=== PATIENT | female | born 1945 | race Caucasian/White ===

== ENCOUNTER 2022-06-02 13:45 | Emergency (ER) | payer MEDICARE, BC, SELFPAY ==
--- NOTE | ~2022-06-02 | CT_ITS ---
EXAMINATION: CT HEAD WITHOUT CONTRAST CLINICAL INFORMATION: Dizziness COMPARISON: None available. TECHNIQUE: Contiguous axial imaging was performed from the skull base to vertex without intravenous administration of contrast. This CT examination was performed using dose optimization techniques as appropriate, variously including the following: *Automated exposure control *Adjustment of mA and/or kV according to patient size (this includes techniques or standardized protocols for targeted exams where dose is matched to indication/reason for exam; i.e. extremities or head) *Use of iterative reconstruction technique DLP: 534 mGy-cm FINDINGS: There is mild prominence to the sulci. There is no intra or extra-axial fluid collection or hemorrhage, mass or mass effect. Calvarium intact. CT/CT head/brain wo IV con IMPRESSION: No acute intracranial pathology.
[2022-06-02 14:23] VITALS: BP 136/79; PULSE 75; RESP 18; TEMP 36.1; O2SAT 97; BMI 24.4
--- NOTE | 2022-06-02 14:28 | ED_ITS ---
HPI - General Adult General Chief complaint: Dizziness <MABEL Juares - Last Filed: 06/02/22 14:32> Stated complaint: vomiting, vertigo <MABEL Juares - Last Filed: 06/02/22 14:32> Time Seen by Provider: 06/02/22 15:54 <MABEL Juares - Last Filed: 06/02/22 14:32> Source: patient and family (Daughter, Tree) <Froy Head MD - Last Filed: 06/02/22 17:10> Mode of arrival: ambulatory <Froy Head MD - Last Filed: 06/02/22 17:10> Limitations: no limitations <Froy Head MD - Last Filed: 06/02/22 17:10> History of Present Illness HPI narrative: 76-year-old female who presents emergency department for evaluation of hughes dden onset vertigo. She states yesterday she developed lower back pain which is resolved today. She was in bed and she turned her head and she states the room started spinning violently. She stood up and became nauseated and vomited 2 times. Since onset every time she goes from lying to standing position she develops vertigo/room spinning sensations. The the denied fever chills, rhinorrhea, sore throat, cough, chest pain, shortness of breath, dyspnea on exertion.. She denied frequency, urgency or dysuria. <Froy Head MD - Last Filed: 06/02/22 17:10> Related Data Home medications: Previous Rx's Medication Instructions Recorded meclizine 12.5 mg tablet 12.5 mg PO TID PRN dizziness #20 06/02/22 tabs <MABEL Juares - Last Filed: 06/02/22 14:32> Allergies/adverse reactions: Allergies Allergy/AdvReac Type Severity Reaction Status Date / Time No Known Allergies Allergy Verified 06/02/22 14:28 <MABEL Juares - Last Filed: 06/02/22 14:32> Review of Systems Review of Systems: Yes all other systems are reviewed and are negative <Froy Head MD - Last Filed: 06/02/22 17:10> PMFSH Past Medical History [facility] Narrative: Past will history: Diabetes mellitus, atrial fibrillation, breast cancer x3 with mastectomy 1 year prior. She states she is still receiving treatment every 6 months. Social history drug use. <Froy Head MD - Last Filed: 06/02/22 17:10> Social History Social History: Social History Smoked in Last 30 Days: No Use of substances other than those prescribed or required for medical reasons: No Advance Directives: No Advance Directives Information Provided: No <MABEL Juares - Last Filed: 06/02/22 14:32> Physical Exam ED Vital Signs: Vital Signs - 24 hr 06/02/22 14:23 Temperature 97.0 F Pulse Rate 75 Respiratory Rate 18 Blood Pressure 136/79 Pulse Oximetry 97 Oxygen Delivery Method Room Air BMI result Body Mass Index 24.4 <MABEL Juares - Last Filed: 06/02/22 14:32> Vital Signs - 24 hr 06/02/22 14:23 Temperature 97.0 F Pulse Rate 75 Respiratory Rate 18 Blood Pressure 136/79 Pulse Oximetry 97 Oxygen Delivery Method Room Air BMI result Body Mass Index 24.4 <Froy Head MD - Last Filed: 06/02/22 17:10> Const General: cooperative and no acute distress <Froy Head MD - Last Filed: 06/02/22 17:10> Orientation/consciousness: oriented to person and oriented to place <Froy Head MD - Last Filed: 06/02/22 17:10> Limitations: no limitations <Froy Head MD - Last Filed: 06/02/22 17:10> HENCO Head: Yes normal to inspection, Yes normocephalic and Yes atraumatic <Froy Head MD - Last Filed: 06/02/22 17:10> Ears: external ears normal <Froy Head MD - Last Filed: 06/02/22 17:10> General nose exam: Normal external nose present <Froy Head MD - Last Filed: 06/02/22 17:10> Face and sinus: Yes normal facial exam <Froy Head MD - Last Filed: 06/02/22 17:10> Mouth: Normal oral and palatal mucosa present <MD Kvng Soler Last Filed: 06/02/22 17:10> Throat: Yes posterior oropharynx normal <Froy Head MD - Last Filed: 06/02/22 17:10> Eyes General: appearance normal, both eyes and all related structures <Froy Head MD - Last Filed: 06/02/22 17:10> Pupils: Equal, round and reactive pupils present <MD Kvng Soler Last Filed: 06/02/22 17:10> Neck Neck: Yes normal visual inspection, Yes no lymphadenopathy, Yes trachea midline and Yes supple <Froy Head MD - Last Filed: 06/02/22 17:10> Chest Chest palpation & inspection: normal inspection of the chest and normal palpation of entire chest wall <MD Kvng Soler Last Filed: 06/02/22 17:10> Resp Effort & Inspection: normal respiratory effort and able to speak in complete sentences <MD Kvng Soler Last Filed: 06/02/22 17:10> Auscultation: clear to auscultation bilaterally <MD Kvng Soler Last Filed: 06/02/22 17:10> Cardio Rate: regular rate <MD Kvng Soler Last Filed: 06/02/22 17:10> Rhythm: regular rhythm <MD Kvng Soler Last Filed: 06/02/22 17:10> Heart sounds: S1 normal heart sound present, S2 normal heart sound present and no murmurs <MD Kvng Soler Last Filed: 06/02/22 17:10> GI Inspection: Yes normal to inspection <MD Kvng Soler Last Filed: 06/02/22 17:10> Palpation (GI): Soft to palpation, nontender and no guarding <MD Kvng Soler Last Filed: 06/02/22 17:10> Auscultation: normal bowel sounds <MD Kvng Soler Last Filed: 06/02/22 17:10> General: Yes no CVA tenderness <Froy Head MD - Last Filed: 06/02/22 17:10> Back/Spine/Pelvis Back: no CVA tenderness <rFoy Head MD - Last Filed: 06/02/22 17:10> Skin General skin exam: no rashes or lesions noted <Froy Head MD - Last Filed: 06/02/22 17:10> Neuro General: oriented to person and oriented to place <Froy Head MD - Last Filed: 06/02/22 17:10> Cranial nerves: Yes CN's II-XII intact bilaterally and Yes Equal, round and reactive pupils present <Froy Head MD - Last Filed: 06/02/22 17:10> Cognition (Neuro): normal cognition <Froy Head MD - Last Filed: 06/02/22 17:10> Motor exam (neuro): 5/5 motor strength present throughout <Froy Head MD - Last Filed: 06/02/22 17:10> Extrem General: Yes normal to inspection <Froy Head MD - Last Filed: 06/02/22 17:10> Psych Appearance: grossly normal <Froy Head MD - Last Filed: 06/02/22 17:10> Speech and movement: Normal speech and movement present <Froy Head MD - Last Filed: 06/02/22 17:10> Affect: normal affect <Froy Head MD - Last Filed: 06/02/22 17:10> Attitude: cooperative <Froy Head MD - Last Filed: 06/02/22 17:10> Course Course Course Narrative: This is an RME: Additional HPI, ROS, PE not included below will be deferred to primary provider. 76 year old female with PMH of vertigo presents wi th severe dizziness and bilateral flank pain that that began today. Patient reports symptoms feel similar to her typical vertigo episodes. No urinary sx, no dysuria, hematuria, pruritus. PE: - finger to nose, -heel to dai, NIHSS 0, Plan: imaging <MABEL Juares - Last Filed: 06/02/22 14:32> Medications Administered Discontinued Medications Generic Name Dose Route Start Last Admin Trade Name Freq PRN Reason Stop Dose Admin Sodium Chloride 1,000 mls @ 999 mls/hr 06/02/22 14:45 06/02/22 16:46 Ns IV 06/02/22 15:45 999 mls/hr .Q1H1M MISTI Administration Meclizine HCl 25 mg 06/02/22 14:32 06/02/22 16:43 Meclizine Hcl 25 Mg Tablet PO 06/02/22 14:33 25 mg ONCE ONE Administration <MABEL Juares - Last Filed: 06/02/22 14:32> Medications Administered Discontinued Medications Generic Name Dose Route Start Last Admin Trade Name Freq PRN Reason Stop Dose Admin Sodium Chloride 1,000 mls @ 999 mls/hr 06/02/22 14:45 06/02/22 16:46 Ns IV 06/02/22 15:45 999 mls/hr .Q1H1M MISTI Administration Meclizine HCl 25 mg 06/02/22 14:32 06/02/22 16:43 Meclizine Hcl 25 Mg Tablet PO 06/02/22 14:33 25 mg ONCE ONE Administration <rFoy Head MD - Last Filed: 06/02/22 17:10> Medical Decision Making Medical Decision Making MDM Narrative: 76-year-old female who presents emergency department for evaluation of sudden onset of vertigo associated with nausea and vomiting. The vertigo is triggered by position change (lying to standing). Vital signs were normal. Ph ysical examination was unremarkable. Provider at triage ordered the following: CBC, CMP, magnesium, urinalysis, CT scan of the head. I added 12 EKG. Patient's vertigo be treated with meclizine 25 mg orally. My interpretation laboratory evaluation as follows: CBC normal. CMP was normal. CT of the brain was unremarkable. Twelve EKG shows that she was in normal sinus rhythm. Patient's presentation is consistent with acute onset of benign positional vertigo and I did discuss this with the patient the patient's daughter. I did contact physical therapy and they can do Rowan fevers on the patient tomorrow she gets a prescription for vertigo treat from her PCP (this cannot complement in-patient provider for outpatient treatment). I did discuss this with the patient. Patient was prescribed meclizine 12.5 mg 3 times a day as needed for dizziness. She was given a work note. She was discharged home. <Froy Head MD - Last Filed: 06/02/22 17:10> Differential Diagnosis Differential diagnosis includes was not limited to benign positional vertigo, cerebellar stroke, electrolyte abnormalities, arrhythmias, atrial fibrillation, anemia <Froy Head MD - Last Filed: 06/02/22 17:10> Admission/Observation Consideration of admission/observation: Escalation of care including admission/observation considered <Froy Head MD - Last Filed: 06/02/22 17:10> Lab Data [facility] Lab Attestation statement: I reviewed the patient's lab results. <Froy Head MD - Last Filed: 06/02/22 17:10> See MDM <Froy Head MD - Last Filed: 06/02/22 17:10> Result Diagrams: 06/02/22 15:43 06/02/22 15:43 <MABEL Juares - Last Filed: 06/02/22 14:32> Labs: Lab Results 06/02/22 06/02/22 06/02/22 Range/Units 15:43 15:43 16:48 WBC 7.2 (4.8-10.8) X10*3/uL RBC 5.04 (4.20-5.50) X10*6/uL Hgb 15.1 (12.0-16.0) g/dl Hct 46.1 (37.0-47.0) % MCV 91.5 (80.0-98.0) fL MCH 30.0 (27.0-33.0) pg MCHC 32.8 (31.0-35.0) g/dl RDW 13.9 (11.0-16.0) % Plt Count 175 (160-400) X10*3/uL MPV 11.4 (9.4-12.3) fL Immature Gran % (Auto) 0.1 (0.0-0.4) % Neut % (Auto) 71.4 (45-73) % Lymph % (Auto) 17.7 L (20-40) % [place] % (Auto) 8.8 (2-11) % Eos % (Auto) 1.4 (0-4) % Baso % (Auto) 0.6 (0-2) % Lymph # (Auto) 1.3 (1.2-4.9) X10*3/uL [place] # (Auto) 0.6 (0.1-1.2) X10*3/uL Eos # (Auto) 0.1 (0.0-0.4) X10*3/uL Baso # (Auto) 0.0 (0.0-0.2) X10*3/uL Abs Immat Gran (auto) 0.01 (0.00-0.03) X10*3/uL Absolute Neuts (auto) 5.2 (2.0-8.3) x10*3/uL Absolute Nucleated RBC 0.000 (0.0-0.012) X10*3/uL Nucleated RBC % (auto) 0.0 (0.0-0.2) /100WBC Sodium 142 (135-145) mmol/L Potassium 4.6 (3.3-5.1) mmol/L Chloride 106 (96-108) mmol/L Carbon Dioxide 23 (22-29) mmol/L Anion Gap 18 (12-20) BUN 22 H (9-16) mg/dL Creatinine 0.93 (0.5-1.4) mg/dL Estim Creat Clear Calc 38.3 Estimated GFR 58 POC Glucose 81 (60-115) mg/dL Random Glucose 101 (60-115) mg/dL Calcium 9.8 (8.4-10.2) mg/dL Magnesium 2.1 (1.6-2.6) mg/dL Total Bilirubin 0.8 (0.0-1.0) mg/dL AST 17 (5-31) U/L ALT 17 (0-31) U/L Alkaline Phosphatase 51 (39-117) U/L Total Protein 7.3 (6.5-8.0) g/dL Albumin 4.4 (3.5-5.0) g/dL <MABEL Juares - Last Filed: 06/02/22 14:32> Lab Results 06/02/22 06/02/22 06/02/22 Range/Units 15:43 15:43 16:48 WBC 7.2 (4.8-10.8) X10*3/uL RBC 5.04 (4.20-5.50) X10*6/uL Hgb 15.1 (12.0-16.0) g/dl Hct 46.1 (37.0-47.0) % MCV 91.5 (80.0-98.0) fL MCH 30.0 (27.0-33.0) pg MCHC 32.8 (31.0-35.0) g/dl RDW 13.9 (11.0-16.0) % Plt Count 175 (160-400) X10*3/uL MPV 11.4 (9.4-12.3) fL Immature Gran % (Auto) 0.1 (0.0-0.4) % Neut % (Auto) 71.4 (45-73) % Lymph % (Auto) 17.7 L (20-40) % [place] % (Auto) 8.8 (2-11) % Eos % (Auto) 1.4 (0-4) % Baso % (Auto) 0.6 (0-2) % Lymph # (Auto) 1.3 (1.2-4.9) X10*3/uL [place] # (Auto) 0.6 (0.1-1.2) X10*3/uL Eos # (Auto) 0.1 (0.0-0.4) X10*3/uL Baso # (Auto) 0.0 (0.0-0.2) X10*3/uL Abs Immat Gran (auto) 0.01 (0.00-0.03) X10*3/uL Absolute Neuts (auto) 5.2 (2.0-8.3) x10*3/uL Absolute Nucleated RBC 0.000 (0.0-0.012) X10*3/uL Nucleated RBC % (auto) 0.0 (0.0-0.2) /100WBC Sodium 142 (135-145) mmol/L Potassium 4.6 (3.3-5.1) mmol/L Chloride 106 (96-108) mmol/L Carbon Dioxide 23 (22-29) mmol/L Anion Gap 18 (12-20) BUN 22 H (9-16) mg/dL Creatinine 0.93 (0.5-1.4) mg/dL Estim Creat Clear Calc 38.3 Estimated GFR 58 POC Glucose 81 (60-115) mg/dL Random Glucose 101 (60-115) mg/dL Calcium 9.8 (8.4-10.2) mg/dL Magnesium 2.1 (1.6-2.6) mg/dL Total Bilirubin 0.8 (0.0-1.0) mg/dL AST 17 (5-31) U/L ALT 17 (0-31) U/L Alkaline Phosphatase 51 (39-117) U/L Total Protein 7.3 (6.5-8.0) g/dL Albumin 4.4 (3.5-5.0) g/dL <Froy Head MD - Last Filed: 06/02/22 17:10> Independent Interpretation I performed an independent interpretation of an: EKG <Froy Head MD - Last Filed: 06/02/22 17:10> Interpretation: My independent her petition patient's 12 EKG is as follows: Normal sinus rhythm rate of 68, normal AL interval, QRS duration QTC interval, no ST segment elevation, ST segment depression, no T-wave abnormalities, this is a normal EKG. <Froy Head MD - Last Filed: 06/02/22 17:10> Radiology Impression Discussion of test interpretation with radiology: I have reviewed the radiologist's reading. <Froy Head MD - Last Filed: 06/02/22 17:10> Radiologist Impression: CT head/brain wo IV con IMPRESSION: No acute intracranial pathology. Dictated By:Eduard Azul MDSigned By:<Electronically signed by Eduard Azul MD in [place]>06/02/22 16 <Froy Head MD - Last Filed: 06/02/22 17:10> Independent Historian Clinical information obtained from an independent historian. History obtained from or confirmed by: Other (Daughter) <Froy Head MD - Last Filed: 06/02/22 17:10> Chronic Conditions Patient?s care impacted by: Cancer <Froy Head MD - Last Filed: 06/02/22 17:10> Discharge Plan Discharge Clinical Impression: Benign paroxysmal positional vertigo <MABEL Juares - Last Filed: 06/02/22 14:32> Patient Disposition: Home, Self-Care <MABEL Juares - Last Filed: 06/02/22 14:32> Instructions: Benign Paroxysmal Positional Vertigo (ED) <MABEL Juares - Last Filed: 06/02/22 14:32> Additional Instructions: Take meclizine 12.5 mg pills, 1 pill every 6 hours as needed for dizziness. Our physical therapist, Tangela specializes in vertigo treatment (Rowan maneuvers) and can see you tomorrow at the physical therapy department 4th floor. You will need to get a prescription from your primary care doctor stating that you need treatment for vertigo. This prescription cannot come from the a needs to come from an outpatient doctor for outpatient treatment. Follow-up with your doctor in 2 days. Please return to the emergency department if your symptoms get worse or if you develop any symptoms that are concerning to you. Please see the work note <MABEL Juares - Last Filed: 06/02/22 14:32> Prescriptions: New meclizine 12.5 mg tablet 12.5 mg PO TID PRN (Reason: dizziness) Qty: 20 0RF <MABEL Juares - Last Filed: 06/02/22 14:32> Stand Alone Forms: Work/School Release <MABEL Juares - Last Filed: 06/02/22 14:32>
[2022-06-02 15:48] LABS: MANUAL DIFF FLAG NO
[2022-06-02 15:51] LABS: Basophils Percent Auto 0.6 % (0-2); Eosinophils Absolute Auto 0.1 X10*3/uL (0.0-0.4); Eosinophils Percent Auto 1.4 % (0-4); Hematocrit 46.1 % (37.0-47.0); Hemoglobin 15.1 g/dl (12.0-16.0); Imm Gran Abs Auto 0.01 X10*3/uL (0.00-0.03); Imm Gran Pct Auto 0.1 % (0.0-0.4); Lymphocytes Absolute Auto 1.3 X10*3/uL (1.2-4.9); Lymphocytes Percent Auto 17.7 % (20-40); Mean Corpuscular HGB Conc 32.8 g/dl (31.0-35.0); Mean Corpuscular Volume 91.5 fL (80.0-98.0); Mean Platelet Volume 11.4 fL (9.4-12.3); Monocytes Absolute Auto 0.6 X10*3/uL (0.1-1.2); Monocytes Percent Auto 8.8 % (2-11); Neutrophils Absolute Auto 5.2 x10*3/uL (2.0-8.3); Neutrophils Percent Auto 71.4 % (45-73); Platelet Count 175 X10*3/uL (160-400); Red Blood Count 5.04 X10*6/uL (4.20-5.50); Red Cell Distribution Width 13.9 % (11.0-16.0); White Blood Count 7.2 X10*3/uL (4.8-10.8)
--- NOTE | 2022-06-02 15:56 | ECG_ITS ---
Test Reason : DIZZINESS Blood Pressure : / mmHG Vent. Rate : 068 BPM Atrial Rate : 068 BPM P-R Int : 154 ms QRS Dur : 070 ms QT Int : 402 ms P-R-T Axes : 021 -29 008 degrees QTc Int : 427 ms Normal sinus rhythm Normal ECG No previous ECGs available Referred By: Froy Head Electronically Signed By:Bon Corona
[2022-06-02 16:28] LABS: Alanine Aminotransferase 17 U/L (0-31); Albumin Level 4.4 g/dL (3.5-5.0); Alkaline Phosphatase 51 U/L (39-117); Anion Gap 18 (12-20); Aspartate Amino Transferase 17 U/L (5-31); Bilirubin Total 0.8 mg/dL (0.0-1.0); Blood Urea Nitrogen 22 mg/dL (9-16); Calcium 9.8 mg/dL (8.4-10.2); Carbon Dioxide 23 mmol/L (22-29); Chloride 106 mmol/L (96-108); Creatinine Clr Calc Pharmacy 38.3; Estimated Glomerular Filt Rate 58; Glucose Random 101 mg/dL (60-115); Magnesium 2.1 mg/dL (1.6-2.6); Potassium 4.6 mmol/L (3.3-5.1); Sodium 142 mmol/L (135-145); Total Protein 7.3 g/dL (6.5-8.0)
[2022-06-02] MEDS: Meclizine HCl 25 MG TABLET PO (16:43)
[2022-06-02] MEDS: 0.9 % Sodium Chloride 1,000 ML 999 ML IV (16:46)
[2022-06-02 16:51] LABS: Glucose, Whole Blood 81 mg/dL (60-115)
== END 2022-06-02 17:52 | disposition home or self-care (01) ==
PROVIDERS: Physician Assistant; Emergency Provider Emergency Medicine Emergency Medical Services; PCP Physician Assistant Medical
DX: H81.13 Benign paroxysmal vertigo, bilateral (principal); R51.9 Headache, unspecified; R94.31 Abnormal electrocardiogram [ECG] [EKG]; Z79.899 Other long term (current) drug therapy
CPT/HCPCS: 36415; 70450; 80053; 82947; 83735; 85025; 93005; 96360; 99284; 99285

== ENCOUNTER 2022-06-24 09:30 | Outpatient (RCR) | payer MEDICARE, BC, SELFPAY | END 2022-08-12 15:30 | disposition home or self-care (01) | LOC: HO.PT 09:30 | PROVIDERS: PCP Physician Assistant Medical; Visit Provider Physician Assistant Medical | DX: H81.10 Benign paroxysmal vertigo, unspecified ear (principal) | CPT/HCPCS: 95992; 97112; 97161 ==

== ENCOUNTER 2022-09-29 15:00 | Outpatient (RCR) | payer MEDICARE, BC, SELFPAY ==
[2022-09-28 11:02] VITALS: BP 121/67; PULSE 81
== END 2022-11-04 14:57 | disposition home or self-care (01) ==
LOC: HO.PT 15:00
PROVIDERS: PCP Physician Assistant Medical; Visit Provider Physician Assistant Medical
DX: H81.4 Vertigo of central origin (principal)
CPT/HCPCS: 95992; 97112; 97162

== ENCOUNTER 2023-05-17 14:16 | Inpatient (IN) | payer MEDICARE, BC, SELFPAY ==
--- NOTE | ~2023-05-17 | CT_ITS ---
EXAMINATION: CT HEAD W/O IV CONTRAST CT CERVICAL SPINE W/O IV CONTRAST CLINICAL INFORMATION: History of fall with posterior head strike, patient on Eliquis. COMPARISON: Head CT from 06/02/2022 TECHNIQUE: Head - Contiguous axial imaging of the head was performed from the skull base to the vertex without the administration of intravenous contrast, and axial images are reconstructed at 2 mm and 5 mm slice thickness. Cervical spine - A volumetric, helical CT acquisition of the cervical spine was obtained without contrast; in addition to the standard set of axial images, multiplanar reformatted images were provided in the coronal and sagittal imaging planes. This CT examination was performed using dose optimization techniques as appropriate, variously including the following: *Automated exposure control *Adjustment of mA and/or kV according to patient size (this includes techniques or standardized protocols for targeted exams where dose is matched to indication/reason for exam; i.e. extremities or head) *Use of iterative reconstruction technique DLP: 788 mGy-cm (total) FINDINGS: HEAD: No acute intracranial findings. Howe to white matter differentiation is preserved. No evidence of intracranial hemorrhage, major vascular territory infarction, focal mass effect or midline shift. There are a few small hypodense foci within deep white matter; findings are compatible with sequela of chronic mild microangiopathy. Chronic mild parenchymal volume loss with commensurate prominence of ventricles and sulci. No hydrocephalus or extra-axial fluid collections. The calvarium is intact and the visualized paranasal sinuses, mastoid air cells and middle ear cavities are clear. Prior ocular lens extractions. Osteoarthrosis of temporomandibular joints (left worse than right). CERVICAL SPINE: There is reversal of lordosis of the degenerated cervical spine. The craniocervical junction is normal. The occipital condyles, dens and atlantodental articulation are intact. There is osteophyte formation at the atlantodental articulation. Multilevel facet arthropathy and disc degenerative changes. There is a stairstep pattern of chronic mild degenerative anterolisthesis at C2-C3, C3-C4 and C4-C5. The degenerative loss of disc height is moderate at C4-C5 and [id number] at C5-C6 and C6-C7. The small posterior disc-osteophyte complexes of C5-C6 and C6-C7 produce mild indentation on the ventral surface of the thecal sac. No significant canal stenosis. No fracture, prevertebral edema or soft tissue hematoma. Thyroid gland is mildly heterogeneous and there is a 2 mm focus of calcification in the lateral right lobe. No evidence of any clinically significant thyroid nodule. No thyroid imaging follow-up recommended. The lung apices are unremarkable. A left IJ catheter is partially included in [id number]. CT/CT cervical spine wo IV con IMPRESSION: * No acute intracranial pathology compared to prior head CT from 06/02/2022. * No soft tissue hematoma or fracture within the degenerated cervical spine.
--- NOTE | ~2023-05-17 | CT_ITS ---
EXAMINATION: CT HEAD W/O IV CONTRAST CT CERVICAL SPINE W/O IV CONTRAST CLINICAL INFORMATION: History of fall with posterior head strike, patient on Eliquis. COMPARISON: Head CT from 06/02/2022 TECHNIQUE: Head - Contiguous axial imaging of the head was performed from the skull base to the vertex without the administration of intravenous contrast, and axial images are reconstructed at 2 mm and 5 mm slice thickness. Cervical spine - A volumetric, helical CT acquisition of the cervical spine was obtained without contrast; in addition to the standard set of axial images, multiplanar reformatted images were provided in the coronal and sagittal imaging planes. This CT examination was performed using dose optimization techniques as appropriate, variously including the following: *Automated exposure control *Adjustment of mA and/or kV according to patient size (this includes techniques or standardized protocols for targeted exams where dose is matched to indication/reason for exam; i.e. extremities or head) *Use of iterative reconstruction technique DLP: 788 mGy-cm (total) FINDINGS: HEAD: No acute intracranial findings. Howe to white matter differentiation is preserved. No evidence of intracranial hemorrhage, major vascular territory infarction, focal mass effect or midline shift. There are a few small hypodense foci within deep white matter; findings are compatible with sequela of chronic mild microangiopathy. Chronic mild parenchymal volume loss with commensurate prominence of ventricles and sulci. No hydrocephalus or extra-axial fluid collections. The calvarium is intact and the visualized paranasal sinuses, mastoid air cells and middle ear cavities are clear. Prior ocular lens extractions. Osteoarthrosis of temporomandibular joints (left worse than right). CERVICAL SPINE: There is reversal of lordosis of the degenerated cervical spine. The craniocervical junction is normal. The occipital condyles, dens and atlantodental articulation are intact. There is osteophyte formation at the atlantodental articulation. Multilevel facet arthropathy and disc degenerative changes. There is a stairstep pattern of chronic mild degenerative anterolisthesis at C2-C3, C3-C4 and C4-C5. The degenerative loss of disc height is moderate at C4-C5 and fpntntqf-fw-[id number] at C5-C6 and C6-C7. The small posterior disc-osteophyte complexes of C5-C6 and C6-C7 produce mild indentation on the ventral surface of the thecal sac. No significant canal stenosis. No fracture, prevertebral edema or soft tissue hematoma. Thyroid gland is mildly heterogeneous and there is a 2 mm focus of calcification in the lateral right lobe. No evidence of any clinically significant thyroid nodule. No thyroid imaging follow-up recommended. The lung apices are unremarkable. A left IJ catheter is partially included in [id number]. CT/CT head/brain wo IV con IMPRESSION: * No acute intracranial pathology compared to prior head CT from 06/02/2022. * No soft tissue hematoma or fracture within the degenerated cervical spine.
--- NOTE | ~2023-05-17 | MR_ITS ---
MR BRAIN WITHOUT CONTRAST CLINICAL INFORMATION: Question CVA. Ataxic gait. COMPARISON: Head CT 05/17/2023. TECHNIQUE: MRI of the brain was obtained using routine sequences without contrast. FINDINGS: There is no hydrocephalus, extra-axial surface collection, or herniation. There is global cerebral volume loss and there is mild chronic microangiopathy. The major flow voids at the skull base are preserved. There is no acute infarct on diffusion-weighted imaging. There is no intracranial hemorrhage on the gradient recalled echo acquisition. The midline structures are normal. The cerebellar tonsils are normally positioned. The cerebellum and brainstem are normal. The craniocervical junction is normal. Osseous marrow signal intensity is homogenous. The visualized soft tissues are unremarkable. MR/MR head/brain wo con IMPRESSION: - No acute intracranial findings. No acute infarcts. - There is global cerebral volume loss and there is mild chronic microangiopathy.
[2023-05-17 14:34] VITALS: BP 116/63; PULSE 88; RESP 16; TEMP 36.8; O2SAT 98; BMI 24.0
--- NOTE | 2023-05-17 14:34 | ED_ITS ---
HPI - Head Injury General Chief complaint: Fall Stated complaint: Fall/Head inj on thinners Time Seen by Provider: 05/17/23 21:53 Source: patient and family (Daughter, Adelfo) Mode of arrival: ambulatory Limitations: no limitations History of Present Illness HPI Narrative: 77-year-old female with history of diabetes mellitus, coronary disease, atrial fibrillation, stage IV breast cancer metastatic to the liver and bladder currently receiving chemotherapy weekly x4 weeks (plans total of 9 weeks of treatment) through [facility] who presents emergency department for evaluation weakness and fall. Patient states that since receiving her last dose of chemotherapy she has had no appetite and has not been eating or drinking very much. She was sitting outside in a chair, she got up in her legs gave out her causing her to fall backwards and strike her head on the concrete. She had no loss of consciousness. She had difficulty getting up and the daughter assisted her. According to the daughter, the patient was very wobbly and had difficulty walking which is unusual for the patient. The patient denied headache, nausea, vomiting, weakness since the fall. Review of systems was otherwise negative and she denied fever, chills, sore throat, cough, chest pain, shortness of breath. She has had occasional diarrhea. Related Data Previous Rx's ?Medication ?Instructions ?Recorded meclizine 12.5 mg tablet 12.5 mg PO TID PRN dizziness #20 06/02/22 tabs Allergies Allergy/AdvReac Type Severity Reaction Status Date / Time No Known Allergies Allergy Verified 05/17/23 14:36 Review of Systems 2 Review of Systems: Yes all other systems are reviewed and are negative PMFSH Social History Social History Advance Directives: No Advance Directives Information Provided: No Physical Exam 2 Vital Signs: Vital Signs: Last Vital Signs Temp 97.5 F 05/18/23 00:36 Pulse 86 05/18/23 00:36 Resp 18 05/18/23 00:36 BP 135/74 05/18/23 00:36 Pulse Ox 99 05/18/23 00:36 O2 Del Method Room Air 05/18/23 00:36 BMI result Body Mass Index 24.0 Vital signs were normal Exam: General: Awake, alert in no distress Head: Normocephalic, occipital abrasion which is not bleeding at this time. EENT: PERRL, Lids normal, sclera normal, conjunctiva normal, nose normal , ears normal, throat without erythema or exudates Neck: Supple, no adenopathy Lung: breath sounds symmetric, no wheezing, rales or rhonchi Chest: symmetric movement, nontender Heart: regular rate and rhythm, normal S1, S2 no murmurs or rubs Abdomen: soft, mild lower abdominal tenderness with no localization, nondistended, normal bowel sounds Back: no vertebral tenderness, no CVAT Extremities: no deformities, moves all extremities symmetrically Neuro: Awake, alert, oriented, normal speech, cranial nerves intact, moves all extremities symmetrically. Gait: Patient was able to stand, she was able to walk however she seemed to be off balance and needed to hold onto the stretcher and wall in order to walk. Psych: Pleasant, cooperative Course Course Course Narrative: RME:?77 yo female here w/ daughter with headache s/p fall STENCILER. Admits to walking around her backyard when her knees buckled underneath her causing her to fall back with posterior head strike on the cement STENCILER at 1230. On eliquis. Unsure of tetanus status. Daughter states patient was wearing a head covering however has abrasions to posterior head. denies LOC. no n/v, confusion, behavior changes. admits to recent generalized weakness. exam nonfocal. perrla. labs, CT ordered. Full HPI, ROS and PE to be performed by the primary ED provider. Medications Administered Generic Name Dose Route Start Last Admin Trade Name Freq PRN Reason Stop Dose Admin Lactated Ringer's 1,000 mls @ 100 mls/hr 05/18/23 01:15 05/18/23 01:05 Lr IVCONT 100 mls/hr .Q10H MISTI Administration Discontinued Medications Generic Name Dose Route Start Last Admin Trade Name Freq PRN Reason Stop Dose Admin Bacitracin 1 appl 05/18/23 00:34 05/18/23 00:57 Bacitracin Oint 0.9 Gm Packet TOPICAL 05/18/23 00:35 1 appl ONCE ONE Administration Protocol Lactated Ringer's 1,000 mls @ 999 mls/hr 05/17/23 22:30 05/18/23 00:47 Lr IV 05/17/23 23:30 Infused .Q1H1M MISTI Infusion Medical Decision Making Medical Decision Making [facility] Narrative: 77-year-old female with history of diabetes mellitus, coronary disease, atrial fibrillation, stage IV breast cancer metastatic to the liver and bladder currently receiving chemotherapy with 4th dose of chemotherapy yesterday who presents emergency department after a fall. Patient states she had been sitting in a chair, stood up, her legs gave out on her and she fell backwards striking her head on the cement. She had no loss of consciousness. Since the fall she has had no nausea vomiting or headache. She did have an abrasion which was bleeding initially but is now stopped. Patient states that since receiving her 4th dose of chemotherapy she has had no appetite and has not been eating or drinking. She is also noted some diarrhea but otherwise review of systems was unremarkable. Vital signs were normal. Physical examination did reveal abrasion to the occipital area but no suturable laceration. Patient does have normal strength to her lower extremities but when she stands and walks she does appear to be weak and off balance and needs to hold onto objects in order to walk. She did have mild lower abdominal tenderness but no localizing tenderness. Differential diagnosis: ?Includes but is not limited to skull fracture, intracranial bleed, cervical fracture, brain metastases, stroke, anemia, electrolyte abnormalities, volume depletion, dehydration Following evaluation was ordered: CBC, CMP, PT/INR, urinalysis, point of care glucose, CT scan of the head and cervical spine Patient was initially treated with the following: IV insert, lactated Ringer's x1 L Course: 22:27 My interpretation patient's laboratory evaluation is as follows: WBC normal 5500. Normocytic anemia with an H&H of 11 and 35.4. Elevated BUN 20 with a normal creatinine of 0.9. Low bicarb of 17 with a normal anion gap of 15. Serum glucose was elevated 241. of care glucose repeated at 21:23 hours was 134 without treatment. ALT elevated 32. Total protein and albumin low 6.[address] scan of the cervical spine and head were unremarkable did not reveal a clear etiology for the patient's fall. There was no skull fracture, intracranial bleed or cervical spine fracture. Patient's orthostatic vital signs were as follows: Supine: Heart rate 73, BP 146/77. Sitting: Heart rate 81, BP 133/83. Standing: Heart rate 93, BP 144/81 These vital signs suggest that she has not volume depleted/orthostatic 01:00 Patient completed her L of IV fluid and is still ataxic. Patient may have had a cerebellar stroke versus metastatic disease not seen on the CT scan, I will discuss admission with the covering hospitalist Admission/Observation Consideration of admission/observation: Escalation of care including admission/observation considered Consult Healthcare Provider Management of the patient was discussed with: Hospitalist Lab Data MDM Lab Attestation statement: I reviewed the patient's lab results. 05/17/23 15:30 05/17/23 15:30 Labs: Lab Results 05/17/23 05/17/23 05/18/23 Range/Units 15:30 21:23 00:43 WBC 5.5 (4.8-10.8) X10*3/uL RBC 3.93 L D (4.20-5.50) X10*6/uL Hgb 11.9 L D (12.0-16.0) g/dl Hct 35.4 L D (37.0-47.0) % MCV 90.1 (80.0-98.0) fL MCH 30.3 (27.0-33.0) pg MCHC 33.6 (31.0-35.0) g/dl RDW 14.8 (11.0-16.0) % Plt Count 242 D (160-400) X10*3/uL MPV 11.0 (9.4-12.3) fL Immature Gran % (Auto) 3.3 H (0.0-0.4) % Neut % (Auto) 77.5 H (45-73) % Lymph % (Auto) 11.3 L (20-40) % [place] % (Auto) 7.7 (2-11) % Eos % (Auto) 0.0 (0-4) % Baso % (Auto) 0.2 (0-2) % Lymph # (Auto) 0.6 L (1.2-4.9) X10*3/uL [place] # (Auto) 0.4 (0.1-1.2) X10*3/uL Eos # (Auto) 0.0 (0.0-0.4) X10*3/uL Baso # (Auto) 0.0 (0.0-0.2) X10*3/uL Abs Immat Gran (auto) 0.18 H (0.00-0.03) X10*3/uL Absolute Neuts (auto) 4.2 (2.0-8.3) x10*3/uL Absolute Nucleated RBC 0.000 (0.0-0.012) X10*3/uL Nucleated RBC % (auto) 0.0 (0.0-0.2) /100WBC PT 18.7 H (11.1-13.3) SEC INR 1.5 H (0.9-1.1) Sodium 135 (135-145) mmol/L Potassium 4.4 (3.3-5.1) mmol/L Chloride 107 (96-108) mmol/L Carbon Dioxide 17 L (22-29) mmol/L Anion Gap 15 (12-20) BUN 20 H (9-16) mg/dL Creatinine 0.90 (0.5-1.4) mg/dL Estim Creat Clear Calc 38.6 Estimated GFR > 60 POC Glucose 134 H (60-115) mg/dL Random Glucose 241 H (60-115) mg/dL Calcium 9.0 D (8.4-10.2) mg/dL Total Bilirubin 0.4 (0.0-1.0) mg/dL AST 24 (5-31) U/L ALT 32 H (0-31) U/L Alkaline Phosphatase 78 (39-117) U/L Total Protein 6.0 L (6.5-8.0) g/dL Albumin 3.2 L (3.5-5.0) g/dL Urine Color Yellow Urine Appearance Clear Urine pH 5.0 (5.0-9.0) Ur Specific [place] 1.025 (1.005-1.025) Urine Protein Negative (Neg-Trace) mg/dL Urine Glucose (UA) >=1000 H (Negative) mg/dL Urine Ketones Negative (Negative) mg/dL Urine Blood Negative (Negative) Urine Nitrite Negative (Negative) Ur Leukocyte Esterase Negative (Negative) Urine RBC 0-2 (0-2) /HPF Urine WBC 0-5 (0-5) /HPF Ur Squamous Epith Cells 0-2 (0-2) /HPF Urine Bacteria None Seen (None Seen) Hyaline Casts 0-2 (0-2) /LPF Independent Interpretation I performed an independent interpretation of an: EKG Radiology Impression Discussion of test interpretation with radiology: I have reviewed the radiologist's reading. Radiologist Impression: CT head/brain and cervical spine wo IV con IMPRESSION: * No acute intracranial pathology compared to prior head CT from 06/02/2022. * No soft tissue hematoma or fracture within the degenerated cervical spine. Dictated By: Felix Rodriguez MD Discharge Plan Discharge Clinical Impression: Fall, Closed head injury, Ataxia, Abrasion of scalp Patient Disposition: Admitted As Inpatient Print Language: [place]
[2023-05-17 15:34] LABS: MANUAL DIFF FLAG NO
[2023-05-17 15:36] LABS: Basophils Percent Auto 0.2 % (0-2); Hematocrit 35.4 % (37.0-47.0); Hemoglobin 11.9 g/dl (12.0-16.0); Imm Gran Abs Auto 0.18 X10*3/uL (0.00-0.03); Imm Gran Pct Auto 3.3 % (0.0-0.4); Lymphocytes Absolute Auto 0.6 X10*3/uL (1.2-4.9); Lymphocytes Percent Auto 11.3 % (20-40); Mean Corpuscular HGB Conc 33.6 g/dl (31.0-35.0); Mean Corpuscular Hemoglobin 30.3 pg (27.0-33.0); Mean Corpuscular Volume 90.1 fL (80.0-98.0); Monocytes Absolute Auto 0.4 X10*3/uL (0.1-1.2); Monocytes Percent Auto 7.7 % (2-11); Neutrophils Absolute Auto 4.2 x10*3/uL (2.0-8.3); Neutrophils Percent Auto 77.5 % (45-73); Platelet Count 242 X10*3/uL (160-400); Red Blood Count 3.93 X10*6/uL (4.20-5.50); Red Cell Distribution Width 14.8 % (11.0-16.0); White Blood Count 5.5 X10*3/uL (4.8-10.8)
[2023-05-17 15:50] LABS: Alanine Aminotransferase 32 U/L (0-31); Albumin Level 3.2 g/dL (3.5-5.0); Alkaline Phosphatase 78 U/L (39-117); Anion Gap 15 (12-20); Aspartate Amino Transferase 24 U/L (5-31); Bilirubin Total 0.4 mg/dL (0.0-1.0); Blood Urea Nitrogen 20 mg/dL (9-16); Carbon Dioxide 17 mmol/L (22-29); Chloride 107 mmol/L (96-108); Creatinine Clr Calc Pharmacy 38.6; Estimated Glomerular Filt Rate > 60; Glucose Random 241 mg/dL (60-115); Potassium 4.4 mmol/L (3.3-5.1); Sodium 135 mmol/L (135-145)
[2023-05-17 15:51] LABS: INTERNATIONAL NORM RATIO 1.5 (0.9-1.1); Prothrombin Time 18.7 SEC (11.1-13.3)
[2023-05-17 21:30] LABS: Glucose, Whole Blood 134 mg/dL (60-115)
[2023-05-17 22:23] VITALS: BP 133/76; BP 146/77; PULSE 73; PULSE 76; RESP 16; TEMP 36.3; O2SAT 100
[2023-05-17 22:25] VITALS: BP 133/83; PULSE 81
[2023-05-17 22:27] VITALS: BP 144/81; PULSE 93
[2023-05-17] MEDS: Lactated Ringers 1,000 ML 999 ML IV (22:46)
[2023-05-18] VITALS (7 sets, daily range): BP systolic 110–135; BP diastolic 64–89; PULSE 81–93; RESP 16–20; TEMP 36.4–36.9; O2SAT 96–100
[2023-05-18 00:51] LABS: Appearance Urine Clear; Color Urine Yellow; Glucose Urine UA >=1000 mg/dL (Negative); Leukocyte Esterase Urine Negative (Negative); Nitrite Urine Negative (Negative); Specific Gravity - Urine 1.025 (1.005-1.025); UMIC TRIGGER UACC YES; Urine Blood Negative (Negative); Urine Ketones Negative (Negative); Urine Protein Negative (Neg-Trace)
[2023-05-18 00:56] LABS: Bacteria Urine None Seen (None Seen); Hyaline Casts Urine 0-2 /LPF (0-2); RBC Urine 0-2 /HPF (0-2); Squamous Epithelial Cell Urine 0-2 /HPF (0-2); WBC Urine 0-5 /HPF (0-5)
[2023-05-18] MEDS: Bacitracin Oint 0.9 GM PACKET 1 APPL TOPICAL (00:57)
--- NOTE | 2023-05-18 01:02 | ECG_ITS ---
Test Reason : FALL Blood Pressure : / mmHG Vent. Rate : 084 BPM Atrial Rate : 084 BPM P-R Int : 130 ms QRS Dur : 064 ms QT Int : 344 ms P-R-T Axes : 015 -25 029 degrees QTc Int : 406 ms Normal sinus rhythm Normal ECG When compared with ECG of 02-JUN-2022 16:29, No significant change was found Referred By: Froy Head Electronically Signed By:MEENA WILLOUGHBY MD
[2023-05-18] MEDS: Lactated Ringers 1,000 ML 100 ML IVCONT ×3 (01:05→23:45)
--- NOTE | 2023-05-18 02:09 | PM.IMHP ---
History of Present Illness Date of Service: 05/18/23 Chief Complaint: Fall This is a 77-year-old female with pertinent history of metastatic breast cancer to liver and bladder on chemotherapy, xyg-thbldlq-dxulkevlb diabetes mellitus, atrial fibrillation on Eliquis, essential hypertension who presents to the emergency department for evaluation after a fall. Patient states that she was diagnosed with breast cancer for the 4th time end of March. Initial diagnosis was in the 1990s status post mastectomy. Patient has been placed on chemotherapy since her diagnosis in March 2023 and her last chemotherapy session was 05/15 (4th chemotherapy cycle). Patient has had poor appetite since her last dose of chemotherapy and has not been eating or drinking much. Patient was sitting outside in a chair and when she tried to get up, she states that her leg gave out causing her to fall and hitting her head. No dizziness or lightheadedness prior to the fall. Did not lose consciousness. No chest pain or palpitations. No rhythmic jerking movement of extremities. The patient states that she has had lower extremity weakness and difficulty walking due to gait unsteadiness since the fall. At baseline, she does not use a cane or a walker to ambulate. No fever, chills, chest discomfort, palpitations, shortness of breath, abdominal pain, changes in urinary or bowel habits. In the emergency department, patient was found to be ataxic. CT head without any acute abnormality. Review of Systems Constitutional: Constitutional: Reports lethargy, Reports malaise and Reports poor appetite Cardiovascular: Cardiovascular: Reports no additional cardiovascular complaints Respiratory: Respiratory: Reports no additional respiratory complaints Gastrointestinal: Gastrointestinal: Reports no additional gastrointestinal complaints Genitourinary: Genitourinary: Reports no additional female genitourinary complaints Musculoskeletal: Musculoskeletal: Reports abnormal gait Neurologic: Reports abnormal gait [facility] Medical History (Updated 05/18/23 @ 02:20 by Haylee Reyez MD) Essential hypertension Non-insulin dependent type 2 diabetes mellitus Atrial fibrillation Metastatic malignant neoplasm to breast Pertinent family history: No family history of early CAD Social History Advance Directives: No Advance Directives Information Provided: No Meds Allergies Allergy/AdvReac Type Severity Reaction Status Date / Time No Known Allergies Allergy Verified 05/17/23 14:36 Active Medications: Current Medications Lactated Ringer's (Lr) 1,000 mls @ 100 mls/hr IVCONT .Q10H MISTI Last Admin: 05/18/23 01:05 Dose: 100 mls/hr Physical Exam Vital Signs and Narrative: Vital Signs: Last Vital Signs Temp 97.5 F 05/18/23 00:36 Pulse 86 05/18/23 00:36 Resp 18 05/18/23 00:36 BP 135/74 05/18/23 00:36 Pulse Ox 99 05/18/23 00:36 O2 Del Method Room Air 05/18/23 00:36 BMI result Body Mass Index 24.0 Elderly female lying in bed in no distress Neck supple, no JVD, occipital abrasion Regular rate and rhythm, S1-S2 heard Regular breath sounds bilaterally, no wheezing or crackles appreciated Abdomen soft nontender, no guarding, no rigidity Patient is awake, alert and oriented to self, place, time and person, no pronator drift in upper extremity, no nystagmus, no facial droop, patient was able to stand but ataxic gait upon ambulation Psych: Normal mood No pedal edema Results Labs 05/17/23 15:30 05/17/23 15:30 Labs: Laboratory Results - last 24 hr 05/17/23 05/17/23 05/18/23 15:30 21:23 00:43 MCV 90.1 MCH 30.3 MCHC 33.6 RDW 14.8 Plt Count 242 D MPV 11.0 Immature Gran % (Auto) 3.3 H Neut % (Auto) 77.5 H Lymph % (Auto) 11.3 L [place] % (Auto) 7.7 Eos % (Auto) 0.0 Baso % (Auto) 0.2 Lymph # (Auto) 0.6 L [place] # (Auto) 0.4 Eos # (Auto) 0.0 Baso # (Auto) 0.0 Abs Immat Gran (auto) 0.18 H Absolute Neuts (auto) 4.2 Absolute Nucleated RBC 0.000 Nucleated RBC % (auto) 0.0 PT 18.7 H INR 1.5 H Anion Gap 15 Estim Creat Clear Calc 38.6 Estimated GFR > 60 POC Glucose 134 H Random Glucose 241 H Calcium 9.0 D Total Bilirubin 0.4 AST 24 ALT 32 H Alkaline Phosphatase 78 Total Protein 6.0 L Albumin 3.2 L Urine Color Yellow Urine Appearance Clear Urine pH 5.0 Ur Specific [place] 1.025 Urine Protein Negative Urine Glucose (UA) >=1000 H Urine Ketones Negative Urine Blood Negative Urine Nitrite Negative Ur Leukocyte Esterase Negative Urine RBC 0-2 Urine WBC 0-5 Ur Squamous Epith Cells 0-2 Urine Bacteria None Seen Hyaline Casts 0-2 Imaging Radiologist's Impressions: Impressions Cervical Spine CT 05/17/23 15:06 IMPRESSION: * No acute intracranial pathology compared to prior head CT from 06/02/2022. * No soft tissue hematoma or fracture within the degenerated cervical spine. Head CT 05/17/23 15:06 IMPRESSION: * No acute intracranial pathology compared to prior head CT from 06/02/2022. * No soft tissue hematoma or fracture within the degenerated cervical spine. Assessment and Plan (1) Fall: Qualifiers: Encounter type: initial encounter Qualified Code(s): W19.XXXA - Unspecified fall, initial encounter Status: Acute (2) Ataxia: Status: Acute Plan This is a 77-year-old female with pertinent history of metastatic breast cancer to liver and bladder on chemotherapy, qkz-cpidbsr-mcqionlnu diabetes mellitus, atrial fibrillation on Eliquis, essential hypertension who presents to the emergency department for evaluation after a fall. #. Ataxic gait: ?etiology due to metastatic cancer and chemo. Will obtain MRI to rule out central etiology. Also obtaining vitamin B12. Consulting Physical therapy to evaluate and treat #. Metastatic breast cancer: On chemotherapy #. Uoy-cepqhvq-wpcwhsqke diabetes mellitus with hyperglycemia: Initiating Accu-Cheks with sliding scale insulin #. Atrial fibrillation on Eliquis. Rate controlled in the ER Med rec pending DVT prophylaxis: Eliquis Full code. Discussed with patient at bedside Admit as inpatient and will require two night minimum hospital stay for evaluation of ataxia and subsequent safe disposition (as above), which is not possible in a lesser acute setting. Quality Stroke Does the patient have a stroke diagnosis?: No VTE Prior VTE?: No VTE Risk Level:: Medical - moderate - high VTE Device Contraindication: Treatment Not Indicated VTE Drug Contraindication: N/A - Med Ordered
[2023-05-18 06:54] LABS: Basophils Percent Auto 0.5 % (0-2); Eosinophils Percent Auto 0.2 % (0-4); Hematocrit 34.3 % (37.0-47.0); Hemoglobin 11.5 g/dl (12.0-16.0); Imm Gran Abs Auto 0.08 X10*3/uL (0.00-0.03); Imm Gran Pct Auto 1.9 % (0.0-0.4); Lymphocytes Absolute Auto 0.9 X10*3/uL (1.2-4.9); Lymphocytes Percent Auto 21.1 % (20-40); MANUAL DIFF FLAG NO; Mean Corpuscular HGB Conc 33.5 g/dl (31.0-35.0); Mean Corpuscular Hemoglobin 29.9 pg (27.0-33.0); Mean Corpuscular Volume 89.1 fL (80.0-98.0); Mean Platelet Volume 11.4 fL (9.4-12.3); Monocytes Absolute Auto 0.2 X10*3/uL (0.1-1.2); Monocytes Percent Auto 5.8 % (2-11); Neutrophils Absolute Auto 2.9 x10*3/uL (2.0-8.3); Neutrophils Percent Auto 70.5 % (45-73); Platelet Count 207 X10*3/uL (160-400); Red Blood Count 3.85 X10*6/uL (4.20-5.50); Red Cell Distribution Width 15.1 % (11.0-16.0); White Blood Count 4.1 X10*3/uL (4.8-10.8)
[2023-05-18 07:21] LABS: Anion Gap 12 (12-20); Blood Urea Nitrogen 18 mg/dL (9-16); Calcium 8.5 mg/dL (8.4-10.2); Carbon Dioxide 20 mmol/L (22-29); Chloride 110 mmol/L (96-108); Creatinine Clr Calc Pharmacy 38.2; Estimated Glomerular Filt Rate 60; Glucose Random 153 mg/dL (60-115); Potassium 4.3 mmol/L (3.3-5.1); Sodium 138 mmol/L (135-145)
[2023-05-18 07:57] LABS: Folate 4.6 ng/mL (> or = 4.0); Vitamin B12 614 pg/mL (200-900)
[2023-05-18 07:58] LABS: Glucose, Whole Blood 109 mg/dL (60-115)
--- NOTE | 2023-05-18 07:58 | MHC.EDTECH ---
Pt put on bed ring, urinated significant amount in bed ring and on mattress. Bedding change done. Pt cleaned/kiana care done, repositioned herself, sat up in bed and given breakfast. POC 109, RN aware. Call cuenca within reach.
--- NOTE | 2023-05-18 09:08 | MHC.EDTECH ---
Pt given supplies for mouth care, able to do on her own
--- NOTE | 2023-05-18 09:17 | PHA.MEDREC ---
Pharmacy Consult ? Medication Reconciliation Pharmacy has completed the medication reconciliation, pt had a list with her. Pt was unsure of metoprolol but said there was something new that her Dr wrote for her that she had not picked it up yet. Called the pharmacy and it was a first fill, pt has not started yet so it was left unconfirmed.
--- NOTE | 2023-05-18 11:56 | PC.NURSE ---
PT IS A/O X 4 NO SOB/VIOLET NOTED SPEAKS IN FULL SENTENCES. PT DENIES ANY PAIN/DISC AT THIS TIME. PT HAD HER MRI.
--- NOTE | 2023-05-18 13:08 | HO.PM.IMPN ---
Subjective Subjective Date of Service: 05/18/23 Interval History: feeling better Physical Exam Vital Signs: Vital Signs: Last Vital Signs Temp 97.9 F 05/18/23 13:05 Pulse 84 05/18/23 13:05 Resp 16 05/18/23 13:05 BP 118/71 05/18/23 13:05 Pulse Ox 98 05/18/23 13:05 O2 Del Method Room Air 05/18/23 13:05 BMI result Body Mass Index 24.0 General: AO X 3, no acute distress Resp: CTA bilateral, no accessory muscles used CVS: S1,S2,RRR GI: soft, non tender, non distended Neuro: motor grossly intact, alert Psych: appropriate affect, appropriate insight Objective Data Active Medications Acetaminophen (Acetaminophen 325 Mg Tablet) 650 mg PO Q6H PRN PRN Reason: Pain, Mild (Pain Scale 1-3) Glucose (Glucose Gel 15 Gm Gel..Gram.) 15 gm PO Q15M PRN; Protocol PRN Reason: per Hypoglycemia Standing Ord. Lactated Ringer's (Lr) 1,000 mls @ 100 mls/hr IVCONT .Q10H [facility] Last Admin: 05/18/23 13:03 Dose: 100 mls/hr Documented By: SELMA Dextrose ([email or web address]) 250 mls @ 750 mls/hr IV Q15M PRN; Protocol PRN Reason: per Hypoglycemia Standing Ord. Insulin Human Lispro (Insulin Lispro 100 Unit/Ml 3 Ml Vial) 0 unit SUBCUT QIDACHS [facility]; Protocol Last Admin: 05/18/23 12:00 Dose: Not Given Documented By: SELMA Non-Admin Reason: No Insulin Coverage Melatonin (Melatonin 3 Mg Tablet) 6 mg PO BEDTIME PRN PRN Reason: Insomnia Ondansetron HCl (Ondansetron Hcl 4 Mg/2 Ml Vial) 4 mg IVPUSH Q8H PRN PRN Reason: Nausea and Vomiting Sodium Chloride (0.9 % Sodium Chloride Flush 3 Ml Syringe) 3 ml IVFLUSH QSHIFT [facility] Last Admin: 05/18/23 11:59 Dose: Not Given Documented By: SELMA Non-Admin Reason: DONE UNABLE TO CHART Labs 05/18/23 04:54 05/18/23 04:54 Labs: Laboratory Results - last 24 hr 05/17/23 05/17/23 05/18/23 15:30 21:23 00:43 MCV 90.1 MCH 30.3 MCHC 33.6 RDW 14.8 Plt Count 242 D MPV 11.0 Immature Gran % (Auto) 3.3 H Neut % (Auto) 77.5 H Lymph % (Auto) 11.3 L [place] % (Auto) 7.7 Eos % (Auto) 0.0 Baso % (Auto) 0.2 Lymph # (Auto) 0.6 L [place] # (Auto) 0.4 Eos # (Auto) 0.0 Baso # (Auto) 0.0 Abs Immat Gran (auto) 0.18 H Absolute Neuts (auto) 4.2 Absolute Nucleated RBC 0.000 Nucleated RBC % (auto) 0.0 PT 18.7 H INR 1.5 H Anion Gap 15 Estim Creat Clear Calc 38.6 Estimated GFR > 60 POC Glucose 134 H Random Glucose 241 H Calcium 9.0 D Total Bilirubin 0.4 AST 24 ALT 32 H Alkaline Phosphatase 78 Total Protein 6.0 L Albumin 3.2 L Vitamin B12 Folate Urine Color Yellow Urine Appearance Clear Urine pH 5.0 Ur Specific [place] 1.025 Urine Protein Negative Urine Glucose (UA) >=1000 H Urine Ketones Negative Urine Blood Negative Urine Nitrite Negative Ur Leukocyte Esterase Negative Urine RBC 0-2 Urine WBC 0-5 Ur Squamous Epith Cells 0-2 Urine Bacteria None Seen Hyaline Casts 0-2 05/18/23 05/18/23 04:54 07:55 MCV 89.1 MCH 29.9 MCHC 33.5 RDW 15.1 Plt Count 207 MPV 11.4 Immature Gran % (Auto) 1.9 H Neut % (Auto) 70.5 Lymph % (Auto) 21.1 [place] % (Auto) 5.8 Eos % (Auto) 0.2 Baso % (Auto) 0.5 Lymph # (Auto) 0.9 L [place] # (Auto) 0.2 Eos # (Auto) 0.0 Baso # (Auto) 0.0 Abs Immat Gran (auto) 0.08 H Absolute Neuts (auto) 2.9 Absolute Nucleated RBC 0.000 Nucleated RBC % (auto) 0.0 PT INR Anion Gap 12 Estim Creat Clear Calc 38.2 Estimated GFR 60 POC Glucose 109 Random Glucose 153 H Calcium 8.5 Total Bilirubin AST ALT Alkaline Phosphatase Total Protein Albumin Vitamin B12 614 Folate 4.6 Urine Color Urine Appearance Urine pH Ur Specific [place] Urine Protein Urine Glucose (UA) Urine Ketones Urine Blood Urine Nitrite Ur Leukocyte Esterase Urine RBC Urine WBC Ur Squamous Epith Cells Urine Bacteria Hyaline Casts Assessment and Plan (1) Essential hypertension: Status: Acute Plan 77F PMH metastatic breast cancer on chemo, with mets to liver and bladder, DM, htn, paroxysmal afib, presented with fall fall due to weakness/dehydration from chemotherapy mri negative improved with IV fluids PT following - likely STR at [facility] metastatic breast cancer outpatient follow up paroxysmal afib diltiazem, eliquis htn low normal bp will hold lisinopril DM wth hyperglycemia insulin dvt prophylaxis - eliquis full code reason for continued hospitalization:iv hydration Quality Stroke Does the patient have a stroke diagnosis?: No VTE Prior VTE?: No VTE Risk Level:: Medical - moderate - high VTE Device Contraindication: Treatment Not Indicated VTE Drug Contraindication: N/A - Med Ordered
[2023-05-18 13:15] LABS: Glucose, Whole Blood 191 mg/dL (60-115)
[2023-05-18] MEDS: Insulin Lispro 100 UNIT/ML 3 ML VIAL SUBCUT ×3 (14:23→20:49)
--- NOTE | 2023-05-18 15:38 | PC.NURSE ---
RN TO RN REPORT GIVEN TO ERICK IN THE OVERFLOW UNIT.
[2023-05-18 16:55] LABS: Glucose, Whole Blood 170 mg/dL (60-115)
--- NOTE | 2023-05-18 19:14 | MHC.CM.PN ---
IMM 05/17. CM met with admitted patient with bed assignment pending in the OverFlow unit. Lives with daughter. Independent. No DME/services PCP verified. HCP reviewed, completed and signed. Copies given. Uploaded into [facility] [place] [place] [facility]. THRIVE assessment completed- no needs. Pt is currently in treatment at [facility] for metastatic breast cancer to liver and bladder. Just completed 4 or 8 treatments. Pt was first diagnosed with breast cancer in the 1989 s. This is her fourth re-occurance. Pt had current Flu and Covid vax. D/C plan: Home. Pt would like to be re-evaluated for services closer to discharge. She is not agreeable at present to STR or VNA. Will consider VNA is needed. Family will transport home. CM will follow for any discharge needs.
--- NOTE | 2023-05-18 20:17 | MHC.EDTECH ---
pt was 1 assist to the bathroom with a walker and back to her bed per her request
[2023-05-18] MEDS: Apixaban 5 MG TABLET PO (20:23)
[2023-05-18] MEDS: Calcium + Vitamin D 250 MG TABLET 500 MG PO (20:23)
[2023-05-18 20:48] LABS: Glucose, Whole Blood 255 mg/dL (60-115)
--- NOTE | 2023-05-18 23:41 | PC.NURSE ---
pt arrived to unit arrived around 830pm, via stretcher. AOX3, assessment completed prior to arrival. ON this nurses assessment, denies pain- has slight discomfort to back of head, asked to remove loose dressing to abrasion site. Area clean and dried, small layer of hydrogel placed. lungs CTA+, +BS, +PP, denies any other needs at this time. Will continue to monitor for changes or reported needs.
[2023-05-18] MEDS: 0.9 % Sodium Chloride Flush 3 ML SYRINGE IVFLUSH (23:46)
[2023-05-19 04:00] VITALS: BP 135/87; PULSE 97; RESP 18; TEMP 36.6; O2SAT 97
[2023-05-19] MEDS: Omeprazole 20 MG CAPSULE.DR PO (06:17)
[2023-05-19 07:27] VITALS: BP 135/87; PULSE 97; O2SAT 97
[2023-05-19 07:59] VITALS: BP 138/78; PULSE 93; RESP 14; TEMP 36.4; O2SAT 98
[2023-05-19 07:59] LABS: Glucose, Whole Blood 145 mg/dL (60-115)
[2023-05-19] MEDS: 0.9 % Sodium Chloride Flush 3 ML SYRINGE IVFLUSH ×2 (08:09→16:51)
[2023-05-19] MEDS: Atorvastatin Calcium 40 MG TABLET PO (08:10)
[2023-05-19] MEDS: Lactated Ringers 1,000 ML 100 ML IVCONT (08:10)
[2023-05-19] MEDS: Calcium + Vitamin D 250 MG TABLET 500 MG PO (08:10)
[2023-05-19] MEDS: Empagliflozin 10 MG TABLET PO (08:10)
[2023-05-19] MEDS: Apixaban 5 MG TABLET PO (08:10)
[2023-05-19] MEDS: dilTIAZem HCL CD 120 MG CAP.ER.DEG PO (08:10)
--- NOTE | 2023-05-19 09:47 | P.DS_ITS ---
DS: Providers Provider Date of Service: 05/19/23 Date of admission: 05/18/23 02:08 Primary care physician: MABEL Faye DS: Diagnosis Discharge Diagnosis (1) Essential hypertension: Status: Acute DS: Summary Hospital Course Hospital Course: from initial hpi: 77-year-old female with pertinent history of metastatic breast cancer to liver and bladder on chemotherapy, [id number] diabetes mellitus, atrial fibrillation on Eliquis, essential hypertension who presents to the emergency department for evaluation after a fall. Patient states that she was diagnosed with breast cancer for the 4th time end of March. Initial diagnosis was in the 1990s status post mastectomy. Patient has been placed on chemotherapy since her diagnosis in March 2023 and her last chemotherapy session was 05/15 (4th chemotherapy cycle). Patient has had poor appetite since her last dose of chemotherapy and has not been eating or drinking much. Patient was sitting outside in a chair and when she tried to get up, she states that her leg gave out causing her to fall and hitting her head. No dizziness or lightheadedness prior to the fall. Did not lose consciousness. No chest pain or palpitations. No rhythmic jerking movement of extremities. The patient states that she has had lower extremity weakness and difficulty walking due to gait unsteadiness since the fall. At baseline, she does not use a cane or a walker to ambulate. No fever, chills, chest discomfort, palpitations, shortness of breath, abdominal pain, changes in urinary or bowel habits. In the emergency department, patient was found to be ataxic. CT head without any acute abnormality. hospital course: Patient was admitted for fall due to weakness/dehydration from chemotherapy. MRI was negative. Patient's symptoms improved with IV fluids. She was seen by physical therapy who recommended home PT. For metastatic breast cancer she will continue with oncology follow up outpatient. For paroxysmal atrial fibrillation she was continued on diltiazem and Eliquis. For hypertension she had low normal blood pressure so her lisinopril was held, blood pressure is now elevated and can continue lisinopril as outpatient. For diabetes with hyperglycemia she treated with insulin sliding scale, will continue metformin on discharge. Patient is feeling better will be discharged home wtih vna delay in start of care services start Tuesday05/24/23 Time Attestation Discharge Coordination Time (in mins): 35 Quality: Safe Use of Opioids Does Pt have an Active Cancer Diagnosis on the Problem List?: Yes Opioid Measure Date for [facility] Report: 04/19/23 Opioid Measure Time for [facility] Report: 12:23 Quality: Stroke Does the patient have a stroke diagnosis?: No Physical Exam Vital Signs: Vital Signs: Last Vital Signs Temp 97.6 F 05/19/23 07:59 Pulse 93 05/19/23 07:59 Resp 14 05/19/23 07:59 BP 138/78 05/19/23 07:59 Pulse Ox 98 05/19/23 07:59 O2 Del Method Room Air 05/19/23 07:59 BMI result Body Mass Index 24.0 General: AO X 3, no acute distress Resp: CTA bilateral, no accessory muscles used CVS: S1,S2,RRR GI: soft, non tender, non distended Neuro: motor grossly intact, alert Psych: appropriate affect, appropriate insight DS: Data Data Completed and Pending Labs on day of discharge: Laboratory Results - last 24 hr 05/18/23 05/18/23 05/18/23 13:11 16:52 20:44 POC Glucose 191 H 170 H 255 H 05/19/23 07:54 POC Glucose 145 H Discharge Plan Discharge Anticipated Discharge Date/Time: 05/19/23 09:44 Patient Disposition: Home Health Service Discharge Diagnosis: fall, dehydration Referrals: Jennifer GERONIMO [Outside] - 1 Week Destini Briceño PA [Primary Care Provider] - 1 Week Discharge Medications: New (DME) Ultra-Light Rollator Misc See Rx Instructions .Route Qty: 1 0RF Rx Instructions: As directed Continued atorvastatin 40 mg tablet 40 mg PO DAILY lisinopril 10 mg tablet 10 mg PO DAILY omeprazole 20 mg capsule,delayed release(DR/EC) 20 mg PO DAILY diltiazem HCl 120 mg capsule,extended release 24hr 120 mg PO DAILY metoprolol succinate 25 mg tablet extended release 24 hr 25 mg PO DAILY metformin 500 mg tablet extended release 24 hr 500 mg PO TID Eliquis 5 mg tablet 5 mg PO BID Jardiance 10 mg tablet 10 mg PO DAILY Trulicity 3 mg/0.5 mL pen injector 3 mg subcut QWEEK Rx Instructions: sundays calcium carbonate-vitamin D3 [Calcium 500 + D] 500 mg-10 mcg (400 unit) Tablet 1 tab PO BID Discharge Orders: Discharge Order (Routine); Ordered 05/19/23 Ordered By: Tamir Barnes Diet: Advance to usual diet Activity on Discharge: As tolerated Stand Alone Forms: Patient Portal Discharge page Print Language: Nepali Care Plan Goals: recovery Health Concerns: weakness Plan of Treatment: home pt Assessment: see above
--- NOTE | 2023-05-19 10:17 | P.F2F_ITS ---
Service Date Service Date: 05/19/23 Encounter Date of encounter: 05/19/23 Reasons for Services Signs and symptoms assessed: weakness Reason for physical therapy: home safety and mobility and therapeutic exercises Homebound: Leaving the home is medically contraindicated at this time without the asist of a device and/or another person due th the listed conditions above and below. Reason homebound: unsteady gait / fall risk Certification: Based on the above findings, I certify that this patient is confined to the home and needs intermittent retirement care, physical therapy and/or speech therapy, or continues to need occupational therapy. The patient is under my care, and I have initiated the establishment of the plan of care. The patient will be followed by a physician who will periodically review the plan of care. Time Spent With Patient Time: Total time managing care of this patient today ____ minutes.
[2023-05-19 11:31] LABS: Glucose, Whole Blood 290 mg/dL (60-115)
[2023-05-19] MEDS: Insulin Lispro 100 UNIT/ML 3 ML VIAL SUBCUT ×2 (11:53→16:51)
[2023-05-19 16:00] VITALS: BP 135/69; PULSE 99; RESP 16; TEMP 36.9; O2SAT 97
--- NOTE | 2023-05-19 16:20 | MHC.CM.PN ---
Met with patient. PT rec home services. [facility] is the patients preference. Patient is discharged to home with [facility] for PT. Services will start Tuesday. is aware. Patients dtr will provide transportation home.
[2023-05-19 16:34] LABS: Glucose, Whole Blood 265 mg/dL (60-115)
[2023-05-19] MEDS: Heparin Sodium,Porcine Flush 500 UNIT/5 ML SYRINGE IVFLUSH (17:45)
[2023-05-19] MEDS: Acetaminophen 325 MG TABLET 650 MG PO (18:12)
== END 2023-05-19 19:06 | disposition home health service (06) | DRG 422 ==
LOC: HO.ED 05-18 01:15 → HO.EDOVER 05-18 02:15 → HO.S3 05-18 19:41
PROVIDERS: Physician Assistant Medical; Admitting Provider Student in an Organized Health Care Education/Training Program; Emergency Provider Emergency Medicine Emergency Medical Services; PCP Physician Assistant Medical; Visit Provider Internal Medicine
DX: E86.0 Dehydration (principal); C78.7 Secondary malignant neoplasm of liver and intrahepatic bile duct; C50.919 Malignant neoplasm of unspecified site of unspecified female breast; C79.11 Secondary malignant neoplasm of bladder; E11.65 Type 2 diabetes mellitus with hyperglycemia; I48.0 Paroxysmal atrial fibrillation; I10 Essential (primary) hypertension; T45.1X5A Adverse effect of antineoplastic and immunosuppressive drugs, initial encounter; S00.01XA Abrasion of scalp, initial encounter; W19.XXXA Unspecified fall, initial encounter; Z87.891 Personal history of nicotine dependence; Z79.01 Long term (current) use of anticoagulants; Z79.84 Long term (current) use of oral hypoglycemic drugs; Z79.85 Long-term (current) use of injectable non-insulin antidiabetic drugs; Z79.899 Other long term (current) drug therapy
CPT/HCPCS: 36415; 70450; 70551; 72125; 80048; 80053; 81001; 82607; 82746; 82947; 85025; 85610; 93005; 97116; 97162; 97530; 99285; J1642; J7120

== ENCOUNTER → 2023-05-18 01:02 | Outpatient (BNV) | payer MEDICARE, BC, SELFPAY | PROVIDERS: Admitting Provider Student in an Organized Health Care Education/Training Program; Emergency Provider Emergency Medicine Emergency Medical Services; PCP Physician Assistant Medical; Visit Provider Internal Medicine Cardiovascular Disease | DX: I48.91 Unspecified atrial fibrillation (principal) | CPT/HCPCS: 93010 ==

== ENCOUNTER → 2023-05-18 02:08 | Outpatient (BNV) | payer MEDICARE, BC, SELFPAY | PROVIDERS: Admitting Provider Student in an Organized Health Care Education/Training Program; Emergency Provider Emergency Medicine Emergency Medical Services; PCP Physician Assistant Medical; Visit Provider Student in an Organized Health Care Education/Training Program | DX: I10 Essential (primary) hypertension (principal) | CPT/HCPCS: 99222; 99239; 99499; G0180 ==

== ENCOUNTER 2023-05-20 06:51 | Inpatient (IN) | payer MEDICARE, BC, SELFPAY ==
[2023-05-20] VITALS (17 sets, daily range): BP systolic 107–146; BP diastolic 37–89; PULSE 76–110; RESP 14–20; TEMP 36.7–37.2; O2SAT 97–100; BMI 21.7; BMI 21.4
--- NOTE | ~2023-05-20 | CT_ITS ---
EXAMINATION: CT ABDOMEN AND PELVIS WITHOUT AND WITH CONTRAST CLINICAL INFORMATION: Bright red blood per rectum. Patient on Eliquis. COMPARISON: None. TECHNIQUE: Contiguous axial thin section helical images of the abdomen and pelvis were performed prior to and following the administration of 85 mL Omnipaque 350 IV contrast. The data set was reformatted in the coronal and sagittal planes and reviewed on an independent workstation. This CT examination was performed using dose optimization techniques as appropriate, variously including the following: *Automated exposure control *Adjustment of mA and/or kV according to patient size (this includes techniques or standardized protocols for targeted exams where dose is matched to indication/reason for exam; i.e. extremities or head) *Use of iterative reconstruction technique [id number] mGy-cm FINDINGS: Visualized lung bases demonstrate emphysematous changes and dependent atelectasis. Numerous hypodense lesions are present throughout the liver, not consistent with simple cysts. Several these lesions demonstrate nodular peripheral enhancement on postcontrast imaging suggesting possible hemangiomas. Gallstones are noted within otherwise unremarkable appearing gallbladder. The pancreas, spleen and adrenal glands are unremarkable. The kidneys are normal in size and demonstrate symmetric enhancement status post IV contrast administration. No renal calculi or hydronephrosis of either kidney. A few small renal hypodense lesions are present bilaterally, nonspecific but most consistent with small cysts. The stomach is decompressed. Normal caliber loops of small and large bowel. Normal appendix. Mild stool burden within the proximal colon. There is mild colonic diverticulosis. There is a segmental area of mucosal thickening involving the distal descending colon with some adjacent fat stranding, nonspecific. No CT evidence for acute lower GI bleed. Normal caliber abdominal aorta demonstrating mild atherosclerotic disease. No retroperitoneal lymphadenopathy. Tiny fat-containing umbilical hernia. The bladder is normal in appearance. Unremarkable CT appearance of the uterus. No gross free pelvic fluid. No inguinal lymphadenopathy. Diffuse osteopenia. Mild degenerative changes of the spine. Prominent sclerotic changes of the left femoral head, nonspecific. CT/CT gi bleed abd pel wo/w IVcon IMPRESSION: 1. Abnormal appearance of the descending colon with diverticular changes, some mucosal thickening and pericolonic inflammatory stranding. Findings likely represent a mild active diverticulitis, however, colitis is also within the differential. There is no active lower GI bleed identified. Recommend colonoscopy status post treatment to ensure there is no underlying colonic mass. 2. Several hepatic hypodense lesions, possibly hemangiomas. Liver protocol MRI imaging can be obtained for further characterization as clinically indicated. 3. Cholelithiasis.
--- NOTE | 2023-05-20 07:11 | ECG_ITS ---
Test Reason : gi bleed Blood Pressure : / mmHG Vent. Rate : 092 BPM Atrial Rate : 092 BPM P-R Int : 106 ms QRS Dur : 064 ms QT Int : 346 ms P-R-T Axes : 016 -26 029 degrees QTc Int : 427 ms Sinus rhythm with short FL Nonspecific T wave abnormality Abnormal ECG When compared with ECG of 18-MAY-2023 01:33, Nonspecific T wave abnormality now evident in Lateral leads Referred By: Froy Head Electronically Signed By:Bon Corona
[2023-05-20 07:37] LABS: Basophils Percent Auto 0.9 % (0-2); Eosinophils Percent Auto 0.3 % (0-4); Hematocrit 32.6 % (37.0-47.0); Imm Gran Abs Auto 0.05 X10*3/uL (0.00-0.03); Imm Gran Pct Auto 1.4 % (0.0-0.4); Lymphocytes Absolute Auto 0.8 X10*3/uL (1.2-4.9); Lymphocytes Percent Auto 22.3 % (20-40); MANUAL DIFF FLAG SCAN; Mean Corpuscular HGB Conc 33.7 g/dl (31.0-35.0); Mean Corpuscular Hemoglobin 30.1 pg (27.0-33.0); Mean Corpuscular Volume 89.3 fL (80.0-98.0); Mean Platelet Volume 11.5 fL (9.4-12.3); Monocytes Absolute Auto 0.1 X10*3/uL (0.1-1.2); Monocytes Percent Auto 3.7 % (2-11); NRBC Pct Auto 0.6 /100WBC (0.0-0.2); Neutrophils Absolute Auto 2.5 x10*3/uL (2.0-8.3); Neutrophils Percent Auto 71.4 % (45-73); Platelet Count 188 X10*3/uL (160-400); Red Blood Count 3.65 X10*6/uL (4.20-5.50); Red Cell Distribution Width 14.9 % (11.0-16.0); SCAN SMEAR FLAG 1; White Blood Count 3.5 X10*3/uL (4.8-10.8)
[2023-05-20 07:38] LABS: INTERNATIONAL NORM RATIO 1.4 (0.9-1.1); Prothrombin Time 16.7 SEC (11.1-13.3)
[2023-05-20 07:40] LABS: Partial Thromboplastin Time 25.7 SEC (26.0-36.8)
[2023-05-20 07:48] LABS: Alanine Aminotransferase 25 U/L (0-31); Albumin Level 2.8 g/dL (3.5-5.0); Alkaline Phosphatase 61 U/L (39-117); Anion Gap 15 (12-20); Aspartate Amino Transferase 20 U/L (5-31); Bilirubin Total 0.7 mg/dL (0.0-1.0); Blood Urea Nitrogen 19 mg/dL (9-16); Calcium 8.2 mg/dL (8.4-10.2); Carbon Dioxide 23 mmol/L (22-29); Chloride 105 mmol/L (96-108); Creatinine Clr Calc Pharmacy 42.6; Estimated Glomerular Filt Rate > 60; Glucose Random 200 mg/dL (60-115); Potassium 4.2 mmol/L (3.3-5.1); Sodium 139 mmol/L (135-145); Total Protein 5.3 g/dL (6.5-8.0)
--- NOTE | 2023-05-20 07:56 | ED_ITS ---
HPI - GI Bleed General Chief complaint: GI Bleed Stated complaint: rectal bleeding Time Seen by Provider: 05/20/23 07:00 Source: patient Mode of arrival: EMS Limitations: no limitations History of Present Illness HPI Narrative: 77-year-old female with history of diabetes mellitus, coronary disease, atrial fibrillation, stage IV breast cancer metastatic to the liver and bladder currently receiving chemotherapy weekly (plans total of 9 weeks of treatment) through [facility] who presents to emergency department for evaluation large amount of bright red blood and blood clots per rectum. Patient was hospitalized for 1 day for fall, ataxic with negative MRI and discharged from the hospital yesterday evening. Patient states that the 1st episode of blood per rectum was last night however she did not want to come to the emergency department and when it happened again this morning she did agree to come to the hospital. Paramedics estimated that she lost at least 750 mL of blood based situation at home. Here in the emergency department the patient had a large amount of dark red bloody stool in her under which I estimate was approximately 500 mL of blood. The patient is on Eliquis for atrial fibrillation. Related Data Home Medications ?Medication ?Instructions ?Recorded ?Confirmed apixaban 5 mg tablet (Eliquis) 5 mg PO BID 05/18/23 05/18/23 atorvastatin 40 mg tablet 40 mg PO DAILY 05/18/23 05/18/23 calcium carbonate 500 mg-vitamin 1 tab PO BID 05/18/23 05/18/23 D3 10 mcg (400 unit) tablet (Calcium 500 + D) diltiazem HCl 120 mg 120 mg PO DAILY 05/18/23 05/18/23 capsule,extended release 24 hr dulaglutide 3 mg/0.5 mL 3 mg subcut QWEEK 05/18/23 05/18/23 subcutaneous pen injector (Trulicity) empagliflozin 10 mg tablet 10 mg PO DAILY 05/18/23 05/18/23 (Jardiance) lisinopril 10 mg tablet 10 mg PO DAILY 05/18/23 05/18/23 metformin 500 mg tablet,extended 500 mg PO TID 05/18/23 05/18/23 release 24 hr metoprolol succinate 25 mg 25 mg PO DAILY 05/18/23 tablet,extended release 24 hr omeprazole 20 mg capsule,delayed 20 mg PO DAILY 05/18/23 05/18/23 release Previous Rx's ?Medication ?Instructions ?Recorded walker (Ultra-Light Rollator misc) #1 ea 05/19/23 Allergies Allergy/AdvReac Type Severity Reaction Status Date / Time No Known Allergies Allergy Verified 05/20/23 07:06 Review of Systems 2 Review of Systems: Yes all other systems are reviewed and are negative [facility] Past Medical History [facility] Narrative: Social history: She lives at home with her daughter Medical History (Updated 05/20/23 @ 12:39 by Froy Head MD) Essential hypertension Non-insulin dependent type 2 diabetes mellitus Atrial fibrillation Metastatic malignant neoplasm to breast Social History Social History Household Members: Children Housing: House Do you presently have visiting nurse or other home services: No Alcohol intake: former Patient Tobacco Use Status: Never used Tobacco Smoked in Last 30 Days: No Use of substances other than those prescribed or required for medical reasons: No Advance Directives: Yes Advance Directives on File: Yes Advance Directives Date on File: 05/18/23 service: No Physical Exam 2 Vital Signs: Vital Signs: Last Vital Signs Temp 98.4 F 05/20/23 12:14 Pulse 86 05/20/23 12:15 Resp 16 05/20/23 12:15 BP 138/76 05/20/23 12:15 Pulse Ox 99 05/20/23 12:15 O2 Del Method Room Air 05/20/23 12:15 BMI result Body Mass Index 21.7 Vital signs were stable Exam: General: Awake, alert in no distress, appears anxious Head: Normocephalic, atraumatic EENT: PERRL, Lids normal, sclera normal, conjunctiva normal, nose normal , ears normal, throat without erythema or exudates Neck: Supple, no adenopathy Lung: breath sounds symmetric, no wheezing, rales or rhonchi Chest: symmetric movement, nontender Heart: regular rate and rhythm, normal S1, S2 no murmurs or rubs Abdomen: soft, non-tender, nondistended, normal bowel sounds Rectal: When we remove the patient's pants her under was filled with dark red blood with blood clots. Back: no vertebral tenderness, no CVAT Extremities: no deformities, moves all extremities symmetrically Neuro: Awake, alert, oriented, normal speech, cranial nerves intact, moves all extremities symmetrically Psych: Pleasant, cooperative Medications Administered Discontinued Medications Generic Name Dose Route Start Last Admin Trade Name Freq PRN Reason Stop Dose Admin Sodium Chloride 100 mls @ 100 mls/hr 05/20/23 07:13 05/20/23 09:49 Ns IV 05/20/23 08:12 Infused ONCE ONE Infusion Sodium Chloride 100 mls @ 100 mls/hr 05/20/23 07:13 05/20/23 11:49 Ns IV 05/20/23 08:12 Infused ONCE ONE Infusion Prothrombin Complex Concent ( 80 mls @ 480 mls/hr 05/20/23 07:45 05/20/23 09:16 Human) 2,000 unit/ IV IV 05/20/23 07:54 Not Given Miscellaneous Supplies .Q10M ONE Prothrombin Complex Concent ( 80 mls @ 480 mls/hr 05/20/23 08:00 05/20/23 09:23 Human) 2,000 unit/ IV IV Not Given Miscellaneous Supplies .Q10M MISTI Prothrombin Complex Concent ( 80 mls @ 480 mls/hr 05/20/23 09:15 05/20/23 09:19 Human) 2,000 unit/ IV IV 05/20/23 09:24 Not Given Miscellaneous Supplies .Q10M ONE Phytonadione 10 mg/ Sodium 51 mls @ 51 mls/hr 05/20/23 09:09 05/20/23 11:49 Chloride IV 05/20/23 10:08 Infused ONCE ONE Infusion Iohexol 100 ml 05/20/23 10:06 05/20/23 10:06 Iohexol 350 Mg/Ml 100 Ml Infus..Btl IV 05/20/23 10:07 85 ml ONCE ONE Administration Medical Decision Making Medical Decision Making MDM Narrative: 77-year-old female with history of diabetes mellitus, coronary disease, atrial fibrillation, stage IV breast cancer metastatic to the liver and bladder currently receiving chemotherapy weekly (plans total of 9 weeks of treatment) through [facility] who presents to emergency department for evaluation large amount of bright red blood and blood clots per rectum. Patient is on Eliquis for atrial fibrillation. Paramedics estimated at least 750 cc of blood loss at home. In the ED she had large amount of dark red stool in her underwear proximally 500 cc of blood. BP was 115/38, heart rate 97, abdomen nontender. Differential diagnosis: ?Includes but is not limited to lower GI bleed, diverticular bleed, AVM, internal hemorrhoids, blood dyscrasias related to chemotherapy, anemia, electrolyte abnormalities Following evaluation was ordered: CBC, CMP, PT/INR, PTT, type and screen, EKG, CT GI bleed abdomen pelvis with and without IV contrast Patient was initially treated with the following: Transfused packed red blood cells 2 units. Kcentra for Eliquis reversal Course: 12:25 My interpretation patient's laboratory evaluation as follows: H&H 11 and 32.6 compared to 11.5 and 34.3 on 05/18/2023. BUN elevated 19 with normal creatinine 0.86. Glucose elevated 200. LFTs were normal. CT scan GI protocol did not reveal any active bleed but is consistent with diverticulitis of the descending colon with some mucosal thickening and pericolonic inflammatory changes with no active GI bleed seen. I did discuss these findings over tiger text with our covering finishing machine operator automatic, Dr. Malhotra and the patient will be admitted to the medical service for further management I also discuss the patient's presentation over tiger text with the covering hospitalist, physician contract assistant Yue Flores I did order blood cultures x2 and lactic acid. The patient's diverticulitis will be treated with Zosyn 4.5 g IV. 12:49 Patient's H&H increased from 11 and 32.6-13.2 and 38.0 after 2 unit transfusion. Admission/Observation Consideration of admission/observation: Escalation of care including admission/observation considered Lab Data MDM Lab Attestation statement: I reviewed the patient's lab results. 05/20/23 12:27 05/20/23 07:23 Labs: Lab Results 05/20/23 05/20/23 Range/Units 07:23 12:27 WBC 3.5 L (4.8-10.8) X10*3/uL RBC 3.65 L (4.20-5.50) X10*6/uL Hgb 11.0 L 13.2 (12.0-16.0) g/dl Hct 32.6 L 38.0 (37.0-47.0) % MCV 89.3 (80.0-98.0) fL MCH 30.1 (27.0-33.0) pg MCHC 33.7 (31.0-35.0) g/dl RDW 14.9 (11.0-16.0) % Plt Count 188 (160-400) X10*3/uL MPV 11.5 (9.4-12.3) fL Immature Gran % (Auto) 1.4 H (0.0-0.4) % Neut % (Auto) 71.4 (45-73) % Lymph % (Auto) 22.3 (20-40) % [place] % (Auto) 3.7 (2-11) % Eos % (Auto) 0.3 (0-4) % Baso % (Auto) 0.9 (0-2) % Lymph # (Auto) 0.8 L (1.2-4.9) X10*3/uL [place] # (Auto) 0.1 (0.1-1.2) X10*3/uL Eos # (Auto) 0.0 (0.0-0.4) X10*3/uL Baso # (Auto) 0.0 (0.0-0.2) X10*3/uL Abs Immat Gran (auto) 0.05 H (0.00-0.03) X10*3/uL Absolute Neuts (auto) 2.5 (2.0-8.3) x10*3/uL Absolute Nucleated RBC 0.020 H (0.0-0.012) X10*3/uL Nucleated RBC % (auto) 0.6 H (0.0-0.2) /100WBC Smear Tech's Comments VERIFIED PT 16.7 H (11.1-13.3) SEC INR 1.4 H (0.9-1.1) APTT 25.7 L (26.0-36.8) SEC Sodium 139 (135-145) mmol/L Potassium 4.2 (3.3-5.1) mmol/L Chloride 105 (96-108) mmol/L Carbon Dioxide 23 (22-29) mmol/L Anion Gap 15 (12-20) BUN 19 H (9-16) mg/dL Creatinine 0.86 (0.5-1.4) mg/dL Estim Creat Clear Calc 42.6 Estimated GFR > 60 Random Glucose 200 H (60-115) mg/dL Calcium 8.2 L (8.4-10.2) mg/dL Total Bilirubin 0.7 (0.0-1.0) mg/dL AST 20 (5-31) U/L ALT 25 (0-31) U/L Alkaline Phosphatase 61 (39-117) U/L Total Protein 5.3 L (6.5-8.0) g/dL Albumin 2.8 L (3.5-5.0) g/dL Blood Type A Positive Antibody Screen NEGATIVE Crossmatch See Detail Independent Interpretation I performed an independent interpretation of an: EKG Interpretation: My interpretation patient's 12 EKG done at 07:26 hours is as follows: Normal sinus rhythm with a rate of 92, normal [place] interval, QRS duration QTC interval, no ST segment elevation, no ST segment depression, no PACs, no PVCs Radiology Impression Discussion of test interpretation with radiology: I have reviewed the radiologist's reading. Radiologist Impression: CT gi bleed abd pel wo/w IVcon IMPRESSION: 1. Abnormal appearance of the descending colon with diverticular changes, some mucosal thickening and pericolonic inflammatory stranding. Findings likely represent a mild active diverticulitis, however, colitis is also within the differential. There is no active lower GI bleed identified. Recommend colonoscopy status post treatment to ensure there is no underlying colonic mass. 2. Several hepatic hypodense lesions, possibly hemangiomas. Liver protocol MRI imaging can be obtained for further characterization as clinically indicated. 3. Cholelithiasis. Dictated By: Wero Henry MD Independent Historian Clinical information obtained from an independent historian. History obtained from or confirmed by: Other (Daughter) External Record Review External record reviewed: Inpatient record Critical Care Time Critical Care Time Critical Care Time: Yes Total Critical Care Time: 80 Attestation: Critical Care: The patient was critically ill with a high probability of imminent or life threatening deterioration. I spent greater than 30 minutes of discontinuous time evaluating the patient,delivering critical care at the bedside, discussing and evaluating pertinent data with consultants. Critical care time does not include time spent performing separately billable procedures or teaching. Total time spent performing critical care was 80 minutes. Discharge Plan Discharge Clinical Impression: Diverticular hemorrhage, Diverticulitis, Chronic anticoagulation Patient Disposition: Admitted As Inpatient Print Language: [place]
[2023-05-20] MEDS: Hum Prothrombin Cplx(PCC)4Fact 2,000 UNIT in Container,Empty 0 ML 480 UNIT IV (08:18)
[2023-05-20 08:37] LABS: SLIDE REVIEW VERIFIED
--- NOTE | 2023-05-20 08:49 | PC.NURSE ---
Tolerating transfusion well, vss, per provider infuse 1st transfusion over 1 hour.
--- NOTE | 2023-05-20 08:53 | PC.NURSE ---
Daughter updated on current condition
--- NOTE | 2023-05-20 09:21 | PC.NURSE ---
Patient off to CT
--- NOTE | 2023-05-20 09:24 | PC.NURSE ---
Patient received x 1 dose of Hum Prothrombin (PCC) 2,500 units. Per provider patient only to receive 1 dose. Pharamcy called to discontinue all other ordered doses
[2023-05-20] MEDS: iohexoL 350 MG/ML 100 ML INFUS..BTL IV (10:06)
--- NOTE | 2023-05-20 10:30 | PC.NURSE ---
Patient tolerating 2nd transfusion, no s.s of reaction. Per provider also run 2nd unit over 1 hour. Daughter at bedside, garrett
[2023-05-20] MEDS: Phytonadione (Vit K1) 10 MG in 0.9 % Sodium Chloride 50 ML 51 MG IV (10:41)
[2023-05-20 12:31] LABS: Hemoglobin 13.2 g/dl (12.0-16.0)
[2023-05-20] MEDS: Piperacillin Sodium/Tazobactam 4.5 GM in 0.9 % Sodium Chloride 100 ML IV (13:00)
[2023-05-20 13:21] LABS: Lactic Acid 1.5 mmol/L (0.5-2.0)
--- NOTE | 2023-05-20 13:23 | PM.IMHP ---
History of Present Illness Date of Service: 05/20/23 Chief Complaint: LGIB 77yo F with paroxysmal AF on apixaban, stage IV breast CA currently on chemotherapy [last cycle 05/15], HTN, HLD, and DM2 who presents with a large amount of BRBPR that started last night and recurred this AM. Paramedics estimated blood loss at 750 mL. In the ED, the patient had a large amount of bloody stool approximated at 500 mL. She endorses only mild RLQ discomfort. Recent diarrhea attributed to chemotherapy. Recently admitted here 05/17-05/18 after fall due to weakness/dehydration from chemotherapy. In the ED, BP was 115/38 [currently 138/76]. Hb was 11.5. Lactate 1.5. She was given 2000 units of Kcentra and [address] A/P without and without contrast suggested mild acute diverticulitis versus colitis, with no active lower GI bleed identified. Multiple hypodense hepatic lesions consistent with known history of liver metastases. She currently denies lightheadedness, dizziness, chest pain, or dyspnea. Review of Systems Review of Systems: Yes all other systems are reviewed and are negative [facility] Medical History Essential hypertension Non-insulin dependent type 2 diabetes mellitus Atrial fibrillation Metastatic malignant neoplasm to breast Social History Household Members: Children Housing: House Do you presently have visiting nurse or other home services: No Alcohol intake: former Patient Tobacco Use Status: Never used Tobacco Smoked in Last 30 Days: No Use of substances other than those prescribed or required for medical reasons: No Advance Directives: Yes Advance Directives on File: Yes Advance Directives Date on File: 05/18/23 service: No Meds Allergies Allergy/AdvReac Type Severity Reaction Status Date / Time No Known Allergies Allergy Verified 05/20/23 07:06 Active Medications: Current Medications Acetaminophen (Acetaminophen 325 Mg Tablet) 650 mg PO Q6H PRN PRN Reason: Pain, Mild (Pain Scale 1-3) Glucose (Glucose Gel 15 Gm Gel..Gram.) 15 gm PO Q15M PRN; Protocol PRN Reason: per Hypoglycemia Standing Ord. Dextrose (D10) 250 mls @ 750 mls/hr IV Q15M PRN; Protocol PRN Reason: per Hypoglycemia Standing Ord. Piperacillin Sod/Tazobactam (Sod 3.375 gm/ Sodium Chloride) 50 mls @ 100 mls/hr IV Q6H [facility] Insulin Human Lispro (Insulin Lispro 100 Unit/Ml 3 Ml Vial) 0 unit SUBCUT QIDACHS [facility]; Protocol Ondansetron HCl (Ondansetron Hcl 4 Mg/2 Ml Vial) 4 mg IVPUSH Q8H PRN PRN Reason: Nausea and Vomiting Sodium Chloride (0.9 % Sodium Chloride Flush 3 Ml Syringe) 3 ml IVFLUSH QSHIFT [facility] Home Medications ?Medication ?Instructions ?Recorded ?Confirmed ?Last Taken ?Type apixaban 5 mg tablet (Eliquis) 5 mg PO BID 05/18/23 05/18/23 Unknown History atorvastatin 40 mg tablet 40 mg PO DAILY 05/18/23 05/18/23 Unknown History calcium carbonate 500 mg-vitamin 1 tab PO BID 05/18/23 05/18/23 Unknown History D3 10 mcg (400 unit) tablet (Calcium 500 + D) diltiazem HCl 120 mg 120 mg PO DAILY 05/18/23 05/18/23 Unknown History capsule,extended release 24 hr dulaglutide 3 mg/0.5 mL 3 mg subcut QWEEK 05/18/23 05/18/23 Unknown History subcutaneous pen injector (Trulicity) empagliflozin 10 mg tablet 10 mg PO DAILY 05/18/23 05/18/23 Unknown History (Jardiance) lisinopril 10 mg tablet 10 mg PO DAILY 05/18/23 05/18/23 Unknown History metformin 500 mg tablet,extended 500 mg PO TID 05/18/23 05/18/23 Unknown History release 24 hr metoprolol succinate 25 mg 25 mg PO DAILY 05/18/23 Unknown History tablet,extended release 24 hr omeprazole 20 mg capsule,delayed 20 mg PO DAILY 05/18/23 05/18/23 Unknown History release letrozole 2.5 mg tablet 2.5 mg PO DAILY 05/20/23 Unknown History Physical Exam Vital Signs and Narrative: Vital Signs: Last Vital Signs Temp 98.4 F 05/20/23 12:14 Pulse 86 05/20/23 12:15 Resp 16 05/20/23 12:15 BP 138/76 05/20/23 12:15 Pulse Ox 99 05/20/23 12:15 O2 Del Method Room Air 05/20/23 12:15 BMI result Body Mass Index 21.7 Gen: in no acute distress HEENT: sclera anicteric, moist mucus membranes Neck: supple Lungs: clear to auscultation bilaterally Heart: regular rate and rhythm, no murmurs Abd: soft, mild RLQ tenderness without rebound, non-distended Ext: no edema Skin: warm/well-perfused Neuro: alert and oriented x3, no focal findings Psych: appropriate affect Results Labs 05/20/23 12:27 05/20/23 07:23 Labs: Laboratory Results - last 24 hr 05/20/23 05/20/23 07:23 12:58 MCV 89.3 MCH 30.1 MCHC 33.7 RDW 14.9 Plt Count 188 MPV 11.5 Immature Gran % (Auto) 1.4 H Neut % (Auto) 71.4 Lymph % (Auto) 22.3 [place] % (Auto) 3.7 Eos % (Auto) 0.3 Baso % (Auto) 0.9 Lymph # (Auto) 0.8 L [place] # (Auto) 0.1 Eos # (Auto) 0.0 Baso # (Auto) 0.0 Abs Immat Gran (auto) 0.05 H Absolute Neuts (auto) 2.5 Absolute Nucleated RBC 0.020 H Nucleated RBC % (auto) 0.6 H Smear Tech's Comments VERIFIED PT 16.7 H INR 1.4 H APTT 25.7 L Anion Gap 15 Estim Creat Clear Calc 42.6 Estimated GFR > 60 Random Glucose 200 H Lactic Acid 1.5 Calcium 8.2 L Total Bilirubin 0.7 AST 20 ALT 25 Alkaline Phosphatase 61 Total Protein 5.3 L Albumin 2.8 L Blood Type A Positive Antibody Screen NEGATIVE Crossmatch See Detail Imaging Radiologist's Impressions: Impressions Abdomen/Pelvis CT 05/20/23 10:21 IMPRESSION: 1. Abnormal appearance of the descending colon with diverticular changes, some mucosal thickening and pericolonic inflammatory stranding. Findings likely represent a mild active diverticulitis, however, colitis is also within the differential. There is no active lower GI bleed identified. Recommend colonoscopy status post treatment to ensure there is no underlying colonic mass. 2. Several hepatic hypodense lesions, possibly hemangiomas. Liver protocol MRI imaging can be obtained for further characterization as clinically indicated. 3. Cholelithiasis. Assessment and Plan (1) Lower GI bleed: Status: Acute Plan 77yo F with paroxysmal AF on apixaban, stage IV breast CA currently on chemotherapy [last cycle 05/15], HTN, HLD, and DM2 presenting with an acute, large LGIB. LGIB - Admit to telemetry. Hold apixaban, got reversed with Kcentra. Also got 2u pRBCs. NPO, consult GI. Eventually should have colonoscopy when inflammation resolves. Diverticulitis vs colitis - Continue pip-tracy, follow BCx. Check C. difficile and GI panel PCR. AF - Continue metoprolol succinate + diltiazem; hold apixaban. HTN - Continue metoprolol succinate + diltiazem; hold lisinopril. HLD - Atorvastatin Stage IV breast CA - Letrozole DM2 - Hold MTF + Jardiance. Correction-dose lispro VTE ppx - SCDs Dispo - TBD Code - Full I anticipate that the patient will stay at least 2 midnights as an inpatient in the hospital due to the above reasons. It is neither reasonable nor safe to care for them in a less acute setting. Quality Stroke Does the patient have a stroke diagnosis?: No VTE Prior VTE?: No VTE Risk Level:: Medical - moderate - high VTE Device Contraindication: N/A - Device Ordered VTE Drug Contraindication: Treatment Not Indicated
[2023-05-20 13:26] LABS: C Reactive Protein 2.58 mg/dL (< or = 0.50)
--- NOTE | 2023-05-20 14:30 | PC.NURSE ---
Patient oob to commode to have BM, no blood noted in stool .
--- NOTE | 2023-05-20 14:38 | PHA.MEDREC ---
Pharmacy Consult ? Medication Reconciliation Pharmacy has completed the medication reconciliation. Patient reports no longer taking the cancer medication. Cookie Ramos, NatD
[2023-05-20 15:30] LABS: CDiff Gene PCR NEGATIVE (Negative)
[2023-05-20 16:00] LABS: Adenovirus F 40/41 Not Detected (Not Detect.); Astrovirus Not Detected (Not Detect.); Campylobacter Not Detected (Not Detect.); Cryptosporidium Not Detected (Not Detect.); Cyclospora cayetanensis Not Detected (Not Detect.); E. coli EAEC Not Detected (Not Detect.); E. coli EPEC Not Detected (Not Detect.); E. coli ETEC Not Detected (Not Detect.); E. coli STEC Not Detected (Not Detect.); Entamoeba histolytica Not Detected (Not Detect.); Giardia lamblia Not Detected (Not Detect.); Norovirus GI/GII Not Detected (Not Detect.); Plesiomonas shigelloides Not Detected (Not Detect.); Rotavirus A Not Detected (Not Detect.); Salmonella Not Detected (Not Detect.); Sapovirus Not Detected (Not Detect.); Shigella sp./EIEC Not Detected (Not Detect.); Vibrio Not Detected (Not Detect.); Vibrio Cholerae Not Detected (Not Detect.); Yersinia enterocolitica Not Detected (Not Detect.)
[2023-05-20 16:16] LABS: Glucose, Whole Blood 110 mg/dL (60-115)
[2023-05-20] MEDS: 0.9 % Sodium Chloride Flush 3 ML SYRINGE IVFLUSH (17:47)
[2023-05-20 18:14] LABS: MANUAL DIFF FLAG NO
[2023-05-20 18:20] LABS: Basophils Percent Auto 1.6 % (0-2); Eosinophils Percent Auto 0.4 % (0-4); Hematocrit 40.4 % (37.0-47.0); Hemoglobin 13.9 g/dl (12.0-16.0); Imm Gran Abs Auto 0.03 X10*3/uL (0.00-0.03); Imm Gran Pct Auto 1.2 % (0.0-0.4); Lymphocytes Absolute Auto 0.7 X10*3/uL (1.2-4.9); Lymphocytes Percent Auto 27.7 % (20-40); Mean Corpuscular HGB Conc 34.4 g/dl (31.0-35.0); Mean Corpuscular Hemoglobin 29.4 pg (27.0-33.0); Mean Corpuscular Volume 85.4 fL (80.0-98.0); Mean Platelet Volume 11.3 fL (9.4-12.3); Monocytes Absolute Auto 0.1 X10*3/uL (0.1-1.2); Monocytes Percent Auto 5.5 % (2-11); Neutrophils Absolute Auto 1.6 x10*3/uL (2.0-8.3); Neutrophils Percent Auto 63.6 % (45-73); Platelet Count 154 X10*3/uL (160-400); Red Blood Count 4.73 X10*6/uL (4.20-5.50); Red Cell Distribution Width 14.7 % (11.0-16.0); White Blood Count 2.5 X10*3/uL (4.8-10.8)
--- NOTE | 2023-05-20 18:42 | PC.NURSE ---
Patient requesting to eat, message sent to provider about patient being NPO, provider stating NPO until seen by GI for consult, patient and daughter aware
[2023-05-20 21:15] LABS: Glucose, Whole Blood 120 mg/dL (60-115)
[2023-05-20] MEDS: Piperacillin Sodium/Tazobactam 3.375 GM in 0.9 % Sodium Chloride 50 ML IV (21:39)
--- NOTE | 2023-05-20 22:16 | PM.EVENT ---
Event Note Date of Service: 05/20/23 Event Note: GI Consult-Full note dictated-History from patient, daughter, and EMR. Imp: Acute lower GI bleed, presently stable. Diff dx: Diverticular bleed, Ischemic colitis. Doubt colon neoplasm. Rec: Observe, NPO, F/U Hgb, hold Eliquis. If she remains stable then start clear liquids in AM, continue to observe, and advance diet as tolerated. If she has recurrent active bleeding would obtain a STAT CT with GI Bleed protocol and, if positive, then refer for IR angiography. I would hold off on a colonoscopy until she is done with her chemotherapy.Please call me if problems. D/W patient and daughter in detail. Thanks Time Spent With Patient Time: Total time managing care of this patient today ____ minutes.
[2023-05-21] MEDS: Piperacillin Sodium/Tazobactam 3.375 GM in 0.9 % Sodium Chloride 50 ML IV ×4 (03:11→22:37)
[2023-05-21] MEDS: 0.9 % Sodium Chloride Flush 3 ML SYRINGE IVFLUSH (03:11)
[2023-05-21 03:37] VITALS: BP 132/76; PULSE 85; RESP 20; TEMP 36.8; O2SAT 98
--- NOTE | 2023-05-21 04:41 | CONS_ITS ---
DATE OF SERVICE: 05/20/2023 REASON FOR CONSULTATION: Lower GI bleeding. HISTORY OF PRESENT ILLNESS: This has been obtained from the patient, her daughter, and the medical record. The patient is a 77-year-old female, in the midst of chemotherapy for metastatic breast cancer, who presents with acute lower GI bleeding. The patient was diagnosed with metastatic breast cancer earlier this year although the initial diagnosis of breast cancer was in 1989. The most recent diagnosis of the metastatic cancer was her fourth recurrence of her breast cancer. She was admitted here earlier this week for some trouble with her balance, but the workup for that was negative. She went home just yesterday and began having lower GI bleeding at home with clots and fresh appearing blood. This occurred once last night, again this morning at home, and then once more in the ER this morning. Since that time, she has had no further bleeding. She had some mild left-sided abdominal discomfort, but no significant pain. She denies any nausea nor vomiting. Prior to the onset of her bleeding yesterday, she had been having some diarrhea in relation to chemotherapy, but no other particular GI problems. Her last colonoscopy was at approximately age 64 and was negative. She denies any known family history of colorectal cancer. She has not been using any NSAIDs. She has not been on any outpatient antibiotics. In the ER, she did receive 2 units of packed red blood cells. Also in the ER, she received the reversal agent for Eliquis. Presently, the patient has been stable since transferred to the medical floor. MEDICATIONS: At home included Eliquis, atorvastatin, diltiazem, Jardiance, metoprolol, omeprazole, Trulicity. PAST MEDICAL HISTORY: She is currently in the midst of treatment for metastatic breast cancer to her liver. She has a port in place and has been receiving weekly chemotherapy at [facility]. Other medical issues include diabetes, atrial fibrillation, and hypertension She denies history of IL or stroke. PAST SURGICAL HISTORY: Include multiple right breast surgeries including a right mastectomy for breast cancer. Carpal tunnel surgery. SOCIAL HISTORY: She lives with her daughter. She does not smoke. There is a significant amount of alcohol. She is a . REVIEW OF SYSTEMS: CONSTITUTIONAL: She has been feeling somewhat weak and tired in relation to her recent chemotherapy. SKIN: No rash. No pruritus. CARDIAC: No chest pain. PULMONARY: No coughing or hemoptysis. GI: As above. URINARY: No dysuria. No hematuria. NEUROLOGIC: No headache or seizures. PHYSICAL EXAMINATION: GENERAL: Patient is a pleasant, alert, comfortable-appearing female. SKIN: Warm and dry. Nonjaundiced. HEENT: Anicteric sclerae. Moist mucous membranes. CARDIAC: Normal S1, S2. ABDOMEN: Soft. Normal bowel sounds. Nondistended. She does have some mild diffuse tenderness, although more so on the left than the right. EXTREMITIES: Without edema. LABORATORY DATA: Initial hemoglobin was 11.0 compared to 11.5 two days earlier. She has had 2 followup hemoglobins after receiving 2 units of blood. Her first followup hemoglobin was 13.2 and the second one at 6 p.m. was 13.9. MCV normal. Platelets 164,000. PT 16.7, INR 1.4. Normal electrolytes. BUN 19, creatinine 0.9. Normal LFTs. C-reactive protein 2.6. Albumin 2.8. Stool specimen negative for any sign of infection today. She did have a CT scan of the abdomen and pelvis today that was negative for any sign of active GI bleeding. Several liver lesions were noted. There was also a segmental area of mucosal thickening involving the distal descending colon with some adjacent fat stranding. There is no evidence of any mass. Radiologist felt this most likely represented mild diverticulitis, although colitis could not be ruled out as well. IMPRESSION: The patient presents with acute lower gastrointestinal bleeding while on chemotherapy for breast cancer. Given her clinical history and CT scan findings, I think the most likely diagnoses to consider would be that of either diverticular bleeding or ischemic colitis. I doubt this represents any type of mass. At this point, she appears very stable. I would therefore simply observe her, keep her n.p.o. overnight, and follow her hemoglobin. I would continue to hold the Eliquis. If she does remain stable without any further signs of active bleeding, then I think she can be started on clear liquids tomorrow and then have her diet advanced over the next 24 to 48 hours. On the other hand, if she has recurrent active bleeding, I would obtain another stat CT with GI bleed protocol and, if positive, then refer her for IR angiography. I would hold off on a colonoscopy until she is done with her chemotherapy. I do not think she would need to have that done acutely at this time. Please advise me if I can be of any further assistance during the hospitalization if she has recurrent bleeding. This has been discussed with the patient and her daughter in detail. They are comfortable with this plan. Thank you for the consultation. MD LESLIE Dobson/YASHIRA / [phone] MTDD
[2023-05-21] MEDS: Omeprazole 20 MG CAPSULE.DR PO (06:44)
[2023-05-21 07:19] VITALS: BP 131/76; PULSE 75; RESP 17; TEMP 36.4; O2SAT 99
[2023-05-21 07:19] LABS: Hematocrit 39.1 % (37.0-47.0); Hemoglobin 13.3 g/dl (12.0-16.0); Mean Corpuscular Hemoglobin 29.6 pg (27.0-33.0); Mean Corpuscular Volume 87.1 fL (80.0-98.0); Mean Platelet Volume 11.7 fL (9.4-12.3); NRBC Pct Auto 0.7 /100WBC (0.0-0.2); Platelet Count 171 X10*3/uL (160-400); Red Blood Count 4.49 X10*6/uL (4.20-5.50); Red Cell Distribution Width 15.1 % (11.0-16.0); White Blood Count 2.8 X10*3/uL (4.8-10.8)
[2023-05-21 07:24] LABS: Glucose, Whole Blood 102 mg/dL (60-115)
[2023-05-21 07:34] LABS: Anion Gap 14 (12-20); Blood Urea Nitrogen 16 mg/dL (9-16); Calcium 7.9 mg/dL (8.4-10.2); Carbon Dioxide 24 mmol/L (22-29); Chloride 107 mmol/L (96-108); Creatinine Clr Calc Pharmacy 35.1; Estimated Glomerular Filt Rate > 60; Glucose Random 102 mg/dL (60-115); Potassium 3.6 mmol/L (3.3-5.1); Sodium 141 mmol/L (135-145)
[2023-05-21] MEDS: Metoprolol Succinate ER 25 MG TAB.ER.24H PO (08:55)
[2023-05-21] MEDS: Atorvastatin Calcium 40 MG TABLET PO (08:55)
[2023-05-21] MEDS: dilTIAZem HCL CD 120 MG CAP.ER.DEG PO (08:55)
[2023-05-21] MEDS: Calcium + Vitamin D 250 MG TABLET 500 MG PO (08:55)
--- NOTE | 2023-05-21 09:42 | MHC.CM.PN ---
IMM 05/20. Pt recently admitted 05/17-05/18 for a fall. Pt lives at home with her daughter and two grandchildren. Pts daughter will transport her home. HCP on file and verified. PCP: Destini MONROE
[2023-05-21 11:29] VITALS: BP 127/66; PULSE 92; RESP 18; TEMP 36.4; O2SAT 99
[2023-05-21 11:36] LABS: Glucose, Whole Blood 222 mg/dL (60-115)
[2023-05-21] MEDS: Insulin Lispro 100 UNIT/ML 3 ML VIAL SUBCUT ×2 (12:34→22:36)
--- NOTE | 2023-05-21 14:10 | HO.PM.IMPN ---
Subjective Subjective Date of Service: 05/21/23 Interval History: No acute bleeding since admission. Tolerating clear liquid diet without issue Review of Systems Denies chest pain Denies shortness of breath Denies nausea vomiting diarrhea Denies Fever chills Physical Exam Vital Signs: Vital Signs: Last Vital Signs Temp 97.6 F 05/21/23 11:29 Pulse 92 05/21/23 11:29 Resp 18 05/21/23 11:29 BP 127/66 05/21/23 11:29 Pulse Ox 99 05/21/23 11:29 O2 Del Method Room Air 05/21/23 11:29 BMI result Body Mass Index 21.4 Const: Other: Awake alert no acute distress Resp: Other: Clear to auscultation bilaterally no rales rhonchi or wheezes Cardio: Other: No S4; positive S1-S2; no S3 murmurs rubs or gallops GI: Other: Soft nontender nondistended normoactive bowel sounds Extrem: Other: No edema bilaterally Objective Data Active Medications Acetaminophen (Acetaminophen 325 Mg Tablet) 650 mg PO Q6H PRN PRN Reason: Pain, Mild (Pain Scale 1-3) Atorvastatin Calcium (Atorvastatin Calcium 40 Mg Tablet) 40 mg PO DAILY [facility] Last Admin: 05/21/23 08:55 Dose: 40 mg Documented By: SHANA Calcium Carbonate/Cholecalciferol (Calcium + Vitamin D 250 Mg Tablet) 500 mg PO DAILY [facility] Last Admin: 05/21/23 08:55 Dose: 500 mg Documented By: SHANA Diltiazem HCl (Diltiazem Hcl Cd 120 Mg Cap.Er.Deg) 120 mg PO DAILY [facility]; Protocol Last Admin: 05/21/23 08:55 Dose: 120 mg Documented By: SHANA Glucose (Glucose Gel 15 Gm Gel..Gram.) 15 gm PO Q15M PRN; Protocol PRN Reason: per Hypoglycemia Standing Ord. Dextrose (D10) 250 mls @ 750 mls/hr IV Q15M PRN; Protocol PRN Reason: per Hypoglycemia Standing Ord. Piperacillin Sod/Tazobactam (Sod 3.375 gm/ Sodium Chloride) 50 mls @ 100 mls/hr IV Q6H [facility] Last Infusion: 05/21/23 09:41 Dose: Infused Documented By: FERMIN Lactated Ringer's (Lr) 1,000 mls @ 100 mls/hr IVCONT .Q10H [facility] Insulin Human Lispro (Insulin Lispro 100 Unit/Ml 3 Ml Vial) 0 unit SUBCUT QIDACHS [facility]; Protocol Last Admin: 05/21/23 12:34 Dose: 6 unit Documented By: FERMIN Metoprolol Succinate (Metoprolol Succinate Er 25 Mg Tab.Er.24h) 25 mg PO DAILY [facility]; Protocol Last Admin: 05/21/23 08:55 Dose: 25 mg Documented By: SHANA Omeprazole (Omeprazole 20 Mg Capsule.Dr) 20 mg PO DAILY@0630 [facility] Last Admin: 05/21/23 06:44 Dose: 20 mg Documented By: GENARO Ondansetron HCl (Ondansetron Hcl 4 Mg/2 Ml Vial) 4 mg IVPUSH Q8H PRN PRN Reason: Nausea and Vomiting Sodium Chloride (0.9 % Sodium Chloride Flush 3 Ml Syringe) 3 ml IVFLUSH QSHIFT [facility] Last Admin: 05/21/23 08:57 Dose: Not Given Documented By: SHANA Non-Admin Reason: No Access Labs 05/21/23 06:35 05/21/23 06:35 Labs: Laboratory Results - last 24 hr 05/20/23 05/20/23 05/20/23 14:22 16:08 18:09 MCV 85.4 MCH 29.4 MCHC 34.4 RDW 14.7 Plt Count 154 L MPV 11.3 Immature Gran % (Auto) 1.2 H Neut % (Auto) 63.6 Lymph % (Auto) 27.7 Thomas % (Auto) 5.5 Eos % (Auto) 0.4 Baso % (Auto) 1.6 Lymph # (Auto) 0.7 L [place] # (Auto) 0.1 Eos # (Auto) 0.0 Baso # (Auto) 0.0 Abs Immat Gran (auto) 0.03 Absolute Neuts (auto) 1.6 L Absolute Nucleated RBC 0.000 Nucleated RBC % (auto) 0.0 Anion Gap Estim Creat Clear Calc Estimated GFR POC Glucose 110 Random Glucose Calcium Stl C. cayetanensis PCR Not Detected Stool Rotavirus A PCR Not Detected Stl Adenov F 40/41 PCR Not Detected Stool Astrovirus (PCR) Not Detected Stool Campylobacter PCR Not Detected Stool Cryptosporidium PCR Not Detected Stl Sh Tox Pr E STEC PCR Not Detected Stool E coli O157 PCR Not applicable Stl Enterotoxigenic E PCR Not Detected Stool EPEC (PCR) Not Detected Stool EAEC (PCR) Not Detected Stl E. histolytica PCR Not Detected Stool Giardia Lamblia PCR Not Detected Stl P. shigelloides PCR Not Detected Stool Salmonella PCR Not Detected Stool Sapovirus (PCR) Not Detected Stl Shigella/EIEC PCR Not Detected St Y.enterocolitica PCR Not Detected Stool Vibrio (PCR) Not Detected Stl Vibrio cholerae PCR Not Detected Stl Norovirus GI/GII PCR Not Detected C. difficile Tox B Gene NEGATIVE 05/20/23 05/21/23 05/21/23 21:05 06:35 07:21 MCV 87.1 MCH 29.6 MCHC 34.0 RDW 15.1 Plt Count 171 MPV 11.7 Immature Gran % (Auto) Neut % (Auto) Lymph % (Auto) [place] % (Auto) Eos % (Auto) Baso % (Auto) Lymph # (Auto) Thomas # (Auto) Eos # (Auto) Baso # (Auto) Abs Immat Gran (auto) Absolute Neuts (auto) Absolute Nucleated RBC 0.020 H Nucleated RBC % (auto) 0.7 H Anion Gap 14 Estim Creat Clear Calc 35.1 Estimated GFR > 60 POC Glucose 120 H 102 Random Glucose 102 Calcium 7.9 L Stl C. cayetanensis PCR Stool Rotavirus A PCR Stl Adenov F 40/41 PCR Stool Astrovirus (PCR) Stool Campylobacter PCR Stool Cryptosporidium PCR Stl Sh Tox Pr E STEC PCR Stool E coli O157 PCR Stl Enterotoxigenic E PCR Stool EPEC (PCR) Stool EAEC (PCR) Stl E. histolytica PCR Stool Giardia Lamblia PCR Stl P. shigelloides PCR Stool Salmonella PCR Stool Sapovirus (PCR) Stl Shigella/EIEC PCR St Y.enterocolitica PCR Stool Vibrio (PCR) Stl Vibrio cholerae PCR Stl Norovirus GI/GII PCR C. difficile Tox B Gene 05/21/23 11:32 MCV MCH MCHC RDW Plt Count MPV Immature Gran % (Auto) Neut % (Auto) Lymph % (Auto) Thomas % (Auto) Eos % (Auto) Baso % (Auto) Lymph # (Auto) Thomas # (Auto) Eos # (Auto) Baso # (Auto) Abs Immat Gran (auto) Absolute Neuts (auto) Absolute Nucleated RBC Nucleated RBC % (auto) Anion Gap Estim Creat Clear Calc Estimated GFR POC Glucose 222 H Random Glucose Calcium Stl C. cayetanensis PCR Stool Rotavirus A PCR Stl Adenov F 40/41 PCR Stool Astrovirus (PCR) Stool Campylobacter PCR Stool Cryptosporidium PCR Stl Sh Tox Pr E STEC PCR Stool E coli O157 PCR Stl Enterotoxigenic E PCR Stool EPEC (PCR) Stool EAEC (PCR) Stl E. histolytica PCR Stool Giardia Lamblia PCR Stl P. shigelloides PCR Stool Salmonella PCR Stool Sapovirus (PCR) Stl Shigella/EIEC PCR St Y.enterocolitica PCR Stool Vibrio (PCR) Stl Vibrio cholerae PCR Stl Norovirus GI/GII PCR C. difficile Tox B Gene Assessment and Plan (1) Lower GI bleed: Status: Acute (2) Paroxysmal atrial fibrillation: Status: Acute (3) Metastatic malignant neoplasm to breast: Status: Acute Plan 77yo F with paroxysmal AF on apixaban, stage IV breast CA currently on chemotherapy [last cycle 05/15], HTN, HLD, and DM2 presenting with an acute, large LGIB. Received 2 units of packed red cells upon admission. Hemoglobin has remained stable 1.LGIB -no active bleeding since admission -hemoglobin remains stable -apixaban on hold; resume as per GI -as per GI; no indication for colonoscopy at this point advance diet as tolerated -thus far tolerating clears; will advance to full liquids this evening 2.Diverticulitis vs colitis -Zosyn (2) -GI panel negative 3.PAF -examines normal sinus rhythm at this time -continue metoprolol succinate/diltiazem; hold apixaban. 4.Stage IV breast CA - Letrozole 5.DM2 -acceptable control on current therapies -lispro correctional scale -Hold MTF + Jardiance... Resume in a.m. if tolerating diet SCDs Full code Requires ongoing hospitalization to document stability of hemoglobin in the backdrop of lower GI bleed as diet is advanced Quality Stroke Does the patient have a stroke diagnosis?: No VTE Prior VTE?: No VTE Risk Level:: Medical - moderate - high VTE Device Contraindication: N/A - Device Ordered VTE Drug Contraindication: Treatment Not Indicated
[2023-05-21] MEDS: Lactated Ringers 1,000 ML 100 ML IVCONT (14:56)
[2023-05-21 15:19] VITALS: BP 101/59; PULSE 76; RESP 18; TEMP 36.5; O2SAT 98
[2023-05-21 16:11] LABS: Glucose, Whole Blood 108 mg/dL (60-115)
--- NOTE | 2023-05-21 17:35 | PM.GIPN ---
Subjective Subjective Date of Service: 05/21/23 Interval History: Patient reports no bleeding since admission. Tolerating liquids. Still has some mild left-sided discomfort.Sitting up in a chair. Critical Care Time (minutes): 0 Physical Exam Vital Signs: Vital Signs: Last Vital Signs Temp 97.7 F 05/21/23 15:19 Pulse 76 05/21/23 15:19 Resp 18 05/21/23 15:19 BP 101/59 L 05/21/23 15:19 Pulse Ox 98 05/21/23 15:19 O2 Del Method Room Air 05/21/23 15:19 BMI result Body Mass Index 21.4 Const: General: cooperative, comfortable, no acute distress, alert and awake GI: Other: Abd-soft, +BS, mild left-sided tenderness to palpation but without mass/rebound/guarding, nondistended Objective Data Labs 05/21/23 06:35 05/21/23 06:35 Labs: Laboratory Results - last 24 hr 05/20/23 05/20/23 05/21/23 18:09 21:05 06:35 WBC 2.5 L 2.8 L RBC 4.73 D 4.49 Hgb 13.9 13.3 Hct 40.4 39.1 MCV 85.4 87.1 MCH 29.4 29.6 MCHC 34.4 34.0 RDW 14.7 15.1 Plt Count 154 L 171 MPV 11.3 11.7 Immature Gran % (Auto) 1.2 H Neut % (Auto) 63.6 Lymph % (Auto) 27.7 [place] % (Auto) 5.5 Eos % (Auto) 0.4 Baso % (Auto) 1.6 Lymph # (Auto) 0.7 L [place] # (Auto) 0.1 Eos # (Auto) 0.0 Baso # (Auto) 0.0 Abs Immat Gran (auto) 0.03 Absolute Neuts (auto) 1.6 L Absolute Nucleated RBC 0.000 0.020 H Nucleated RBC % (auto) 0.0 0.7 H Sodium 141 Potassium 3.6 Chloride 107 Carbon Dioxide 24 Anion Gap 14 BUN 16 Creatinine 0.90 Estim Creat Clear Calc 35.1 Estimated GFR > 60 POC Glucose 120 H Random Glucose 102 Calcium 7.9 L 05/21/23 05/21/23 05/21/23 07:21 11:32 16:07 WBC RBC Hgb Hct MCV MCH MCHC RDW Plt Count MPV Immature Gran % (Auto) Neut % (Auto) Lymph % (Auto) [place] % (Auto) Eos % (Auto) Baso % (Auto) Lymph # (Auto) [place] # (Auto) Eos # (Auto) Baso # (Auto) Abs Immat Gran (auto) Absolute Neuts (auto) Absolute Nucleated RBC Nucleated RBC % (auto) Sodium Potassium Chloride Carbon Dioxide Anion Gap BUN Creatinine Estim Creat Clear Calc Estimated GFR POC Glucose 102 222 H 108 Random Glucose Calcium Microbiology Microbiology Results: Microbiology 05/20/23 12:58 Blood - Venous Blood Culture - Preliminary No growth after 24 hours. 05/20/23 12:59 Blood - Venous Blood Culture - Preliminary No growth after 24 hours. Procedures Date of Service Date of Service: 05/21/23 Progress Note: A&P Assessment and plan (1) Lower GI bleed: Status: Acute Assessment and Plan: Imp: Clinically stable without any further bleeding. Hgb is stable as well. Her abdominal exam is unchanged. Still suspect resolving diverticular bleed, but still possible for some resolving ischemic colitis or diverticulitis as well. Rec: Observe. Advance diet by tomorrow if things remain stable. Would change to oral antibiotic by tomorrow for 5 more days to treat any diverticulitis component. I advised her to follow up with her oncologist and PCP, and then once cleared by them we can consider an outpatient colonoscopy. I would recommend holding her Eliquis and any aspirin/NSAIDs for at least one more week. D/W patient and she is comfortable with that plan. Thanks Time Spent With Patient Time: Total time managing care of this patient today ____ minutes. Quality Stroke Does the patient have a stroke diagnosis?: No VTE Prior VTE?: No VTE Risk Level:: Medical - moderate - high VTE Device Contraindication: N/A - Device Ordered VTE Drug Contraindication: Treatment Not Indicated
[2023-05-21 19:27] VITALS: BP 126/69; PULSE 83; RESP 18; TEMP 37.2; O2SAT 97
[2023-05-21 21:22] LABS: Glucose, Whole Blood 158 mg/dL (60-115)
[2023-05-21 23:31] VITALS: BP 114/66; PULSE 77; RESP 20; TEMP 37; O2SAT 97
[2023-05-22 03:23] VITALS: BP 108/65; PULSE 77; RESP 18; TEMP 36.9; O2SAT 96
[2023-05-22] MEDS: Piperacillin Sodium/Tazobactam 3.375 GM in 0.9 % Sodium Chloride 50 ML IV ×2 (03:58→08:26)
[2023-05-22] MEDS: Lactated Ringers 1,000 ML 100 ML IVCONT ×3 (05:10→16:46)
[2023-05-22] MEDS: Omeprazole 20 MG CAPSULE.DR PO (06:46)
[2023-05-22 07:11] LABS: MANUAL DIFF FLAG NO
[2023-05-22 07:15] LABS: Basophils Absolute Auto 0.1 X10*3/uL (0.0-0.2); Basophils Percent Auto 1.8 % (0-2); Eosinophils Percent Auto 1.1 % (0-4); Hematocrit 38.8 % (37.0-47.0); Hemoglobin 13.4 g/dl (12.0-16.0); Imm Gran Abs Auto 0.05 X10*3/uL (0.00-0.03); Imm Gran Pct Auto 1.8 % (0.0-0.4); Lymphocytes Absolute Auto 0.7 X10*3/uL (1.2-4.9); Lymphocytes Percent Auto 25.7 % (20-40); Mean Corpuscular HGB Conc 34.5 g/dl (31.0-35.0); Mean Corpuscular Hemoglobin 30.5 pg (27.0-33.0); Mean Corpuscular Volume 88.2 fL (80.0-98.0); Mean Platelet Volume 11.5 fL (9.4-12.3); Monocytes Absolute Auto 0.3 X10*3/uL (0.1-1.2); Monocytes Percent Auto 10.4 % (2-11); Neutrophils Absolute Auto 1.7 x10*3/uL (2.0-8.3); Neutrophils Percent Auto 59.2 % (45-73); Platelet Count 188 X10*3/uL (160-400); White Blood Count 2.8 X10*3/uL (4.8-10.8)
[2023-05-22 07:20] VITALS: BP 128/74; PULSE 74; RESP 20; TEMP 36.8; O2SAT 97
[2023-05-22 07:26] LABS: Glucose, Whole Blood 101 mg/dL (60-115)
[2023-05-22 07:26] LABS: INTERNATIONAL NORM RATIO 1.1 (0.9-1.1); Prothrombin Time 13.1 SEC (11.1-13.3)
[2023-05-22] MEDS: 0.9 % Sodium Chloride Flush 3 ML SYRINGE IVFLUSH ×3 (08:26→21:13)
[2023-05-22] MEDS: Metoprolol Succinate ER 25 MG TAB.ER.24H PO (08:26)
[2023-05-22] MEDS: Atorvastatin Calcium 40 MG TABLET PO (08:26)
[2023-05-22] MEDS: dilTIAZem HCL CD 120 MG CAP.ER.DEG PO (08:26)
[2023-05-22] MEDS: Calcium + Vitamin D 250 MG TABLET 500 MG PO (08:26)
[2023-05-22 11:37] LABS: Glucose, Whole Blood 179 mg/dL (60-115)
[2023-05-22 12:00] VITALS: BP 121/68; PULSE 77; RESP 20; TEMP 36.7; O2SAT 98
[2023-05-22] MEDS: Insulin Lispro 100 UNIT/ML 3 ML VIAL SUBCUT ×3 (12:26→21:10)
[2023-05-22] MEDS: Amoxicillin/Potassium Clav 875 MG TABLET PO ×2 (12:26→21:10)
--- NOTE | 2023-05-22 12:42 | HO.PM.IMPN ---
Subjective Subjective Date of Service: 05/22/23 Interval History: Doing well with advancement of diet. No further bleeding. Hemoglobin stable Review of Systems Denies chest pain Denies shortness of breath Denies nausea vomiting diarrhea Denies Fever chills Physical Exam Vital Signs: Vital Signs: Last Vital Signs Temp 98.3 F 05/22/23 07:20 Pulse 74 05/22/23 07:20 Resp 20 05/22/23 07:20 BP 128/74 05/22/23 07:20 Pulse Ox 97 05/22/23 07:20 O2 Del Method Room Air 05/22/23 07:20 BMI result Body Mass Index 21.4 Const: Other: Awake alert no acute distress Resp: Other: Clear to auscultation bilaterally no rales rhonchi or wheezes Cardio: Other: No S4; positive S1-S2; no S3 murmurs rubs or gallops GI: Other: Soft nontender nondistended normoactive bowel sounds Extrem: Other: No edema bilaterally Objective Data Active Medications Acetaminophen (Acetaminophen 325 Mg Tablet) 650 mg PO Q6H PRN PRN Reason: Pain, Mild (Pain Scale 1-3) Amoxicillin/Clavulanate Potassium (Amoxicillin/Potassium Clav 875 Mg Tablet) 875 mg PO BID [facility] Last Admin: 05/22/23 12:26 Dose: 875 mg Documented By: FERMIN Atorvastatin Calcium (Atorvastatin Calcium 40 Mg Tablet) 40 mg PO DAILY [facility] Last Admin: 05/22/23 08:26 Dose: 40 mg Documented By: FERMIN Calcium Carbonate/Cholecalciferol (Calcium + Vitamin D 250 Mg Tablet) 500 mg PO DAILY [facility] Last Admin: 05/22/23 08:26 Dose: 500 mg Documented By: FERMIN Diltiazem HCl (Diltiazem Hcl Cd 120 Mg Cap.Er.Deg) 120 mg PO DAILY [facility]; Protocol Last Admin: 05/22/23 08:26 Dose: 120 mg Documented By: FERMIN Glucose (Glucose Gel 15 Gm Gel..Gram.) 15 gm PO Q15M PRN; Protocol PRN Reason: per Hypoglycemia Standing Ord. Dextrose (D10) 250 mls @ 750 mls/hr IV Q15M PRN; Protocol PRN Reason: per Hypoglycemia Standing Ord. Lactated Ringer's (Lr) 1,000 mls @ 100 mls/hr IVCONT .Q10H [facility] Last Admin: 05/22/23 12:27 Dose: 100 mls/hr Documented By: FERMIN Insulin Human Lispro (Insulin Lispro 100 Unit/Ml 3 Ml Vial) 0 unit SUBCUT QIDACHS [facility]; Protocol Last Admin: 05/22/23 12:26 Dose: 1 unit Documented By: FERMIN Metoprolol Succinate (Metoprolol Succinate Er 25 Mg Tab.Er.24h) 25 mg PO DAILY [facility]; Protocol Last Admin: 05/22/23 08:26 Dose: 25 mg Documented By: FERMIN Omeprazole (Omeprazole 20 Mg Capsule.Dr) 20 mg PO DAILY@0630 [facility] Last Admin: 05/22/23 06:46 Dose: 20 mg Documented By: GENARO Ondansetron HCl (Ondansetron Hcl 4 Mg/2 Ml Vial) 4 mg IVPUSH Q8H PRN PRN Reason: Nausea and Vomiting Sodium Chloride (0.9 % Sodium Chloride Flush 3 Ml Syringe) 3 ml IVFLUSH QSHIFT [facility] Last Admin: 05/22/23 08:26 Dose: 3 ml Documented By: FERMIN Labs 05/22/23 06:27 05/21/23 06:35 Labs: Laboratory Results - last 24 hr 05/21/23 05/21/23 05/22/23 16:07 21:01 06:27 MCV 88.2 MCH 30.5 MCHC 34.5 RDW 15.0 Plt Count 188 MPV 11.5 Immature Gran % (Auto) 1.8 H Neut % (Auto) 59.2 Lymph % (Auto) 25.7 [place] % (Auto) 10.4 Eos % (Auto) 1.1 Baso % (Auto) 1.8 Lymph # (Auto) 0.7 L [place] # (Auto) 0.3 Eos # (Auto) 0.0 Baso # (Auto) 0.1 Abs Immat Gran (auto) 0.05 H Absolute Neuts (auto) 1.7 L Absolute Nucleated RBC 0.000 Nucleated RBC % (auto) 0.0 PT 13.1 D INR 1.1 POC Glucose 108 158 H 05/22/23 05/22/23 07:06 11:30 MCV MCH MCHC RDW Plt Count MPV Immature Gran % (Auto) Neut % (Auto) Lymph % (Auto) [place] % (Auto) Eos % (Auto) Baso % (Auto) Lymph # (Auto) [place] # (Auto) Eos # (Auto) Baso # (Auto) Abs Immat Gran (auto) Absolute Neuts (auto) Absolute Nucleated RBC Nucleated RBC % (auto) PT INR POC Glucose 101 179 H Microbiology Microbiology Results: Microbiology 05/20/23 12:58 Blood Culture - Preliminary Blood - Venous No growth after 24 hours. 05/20/23 12:59 Blood Culture - Preliminary Blood - Venous No growth after 24 hours. Assessment and Plan (1) Lower GI bleed: Status: Acute Plan 77yo F with paroxysmal AF on apixaban, stage IV breast CA currently on chemotherapy [last cycle 05/15], HTN, HLD, and DM2 presenting with an acute, large LGIB. Received 2 units of packed red cells upon admission. Hemoglobin has remained stable 1.LGIB -no active bleeding since admission -hemoglobin remains stable -apixaban on hold; resume as per GI -as per GI; no indication for colonoscopy at this point advance diet as tolerated -advance to regular diet this evening; if tolerates question DC in a.m. 2.Diverticulitis vs colitis -Zosyn (3) -GI panel negative 3.PAF -examines normal sinus rhythm at this time -continue metoprolol succinate/diltiazem; hold apixaban. 4.Stage IV breast CA - Letrozole 5.DM2 -acceptable control on current therapies -lispro correctional scale -Hold MTF + Jardiance... Resume in a.m. if tolerating diet SCDs Full code Requires ongoing hospitalization to document stability of hemoglobin in the backdrop of lower GI bleed as diet is advanced Quality Stroke Does the patient have a stroke diagnosis?: No VTE Prior VTE?: No VTE Risk Level:: Medical - moderate - high VTE Device Contraindication: N/A - Device Ordered VTE Drug Contraindication: Treatment Not Indicated
[2023-05-22 15:24] VITALS: BP 117/59; PULSE 75; RESP 18; TEMP 36.9; O2SAT 99
--- NOTE | 2023-05-22 16:00 | PC.NURSE ---
Assumed care of patient at this time.
[2023-05-22 16:10] LABS: Glucose, Whole Blood 245 mg/dL (60-115)
--- NOTE | 2023-05-22 18:11 | P.PNGI_ITS ---
Subjective Subjective Date of Service: 05/22/23 Interval History: History from patient and her RN Feels well. Denies any signs of bleeding. Had some loose brown stool x 1. Denies N/V, abdominal pain. Tolerating liquids. Critical Care Time (minutes): 0 Physical Exam 2 Vital Signs: Vital Signs: Last Vital Signs Temp 98.5 F 05/22/23 15:24 Pulse 75 05/22/23 15:24 Resp 18 05/22/23 15:24 BP 117/59 L 05/22/23 15:24 Pulse Ox 99 05/22/23 15:24 O2 Del Method Room Air 05/22/23 15:24 BMI result Body Mass Index 21.4 Const: General: cooperative, healthy appearing, comfortable, no acute distress, well developed, alert and awake GI: Other: Abd-+BS, soft, NT Objective Data Labs 05/22/23 06:27 05/21/23 06:35 Labs: Laboratory Results - last 24 hr 05/21/23 05/22/23 05/22/23 21:01 06:27 07:06 WBC 2.8 L RBC 4.40 Hgb 13.4 Hct 38.8 MCV 88.2 MCH 30.5 MCHC 34.5 RDW 15.0 Plt Count 188 MPV 11.5 Immature Gran % (Auto) 1.8 H Neut % (Auto) 59.2 Lymph % (Auto) 25.7 [place] % (Auto) 10.4 Eos % (Auto) 1.1 Baso % (Auto) 1.8 Lymph # (Auto) 0.7 L [place] # (Auto) 0.3 Eos # (Auto) 0.0 Baso # (Auto) 0.1 Abs Immat Gran (auto) 0.05 H Absolute Neuts (auto) 1.7 L Absolute Nucleated RBC 0.000 Nucleated RBC % (auto) 0.0 PT 13.1 D INR 1.1 POC Glucose 158 H 101 05/22/23 05/22/23 11:30 16:02 WBC RBC Hgb Hct MCV MCH MCHC RDW Plt Count MPV Immature Gran % (Auto) Neut % (Auto) Lymph % (Auto) [place] % (Auto) Eos % (Auto) Baso % (Auto) Lymph # (Auto) [place] # (Auto) Eos # (Auto) Baso # (Auto) Abs Immat Gran (auto) Absolute Neuts (auto) Absolute Nucleated RBC Nucleated RBC % (auto) PT INR POC Glucose 179 H 245 H Microbiology Microbiology Results: Microbiology 05/20/23 12:58 Blood - Venous Blood Culture - Preliminary No growth after 48 hours. 05/20/23 12:59 Blood - Venous Blood Culture - Preliminary No growth after 48 hours. Procedures Date of Service Date of Service: 05/22/23 Progress Note: A&P Assessment and plan (1) Lower GI bleed: Status: Acute Assessment and Plan: Imp: Presently appears very stable. No sign of further bleeding. ? resolving diverticular bleed, diverticulitis, or ischemic colitis. Rec: Continue to advance diet. I placed diet orders for the AM. F/U labs for the AM. I told her to see me for F/U in the office regarding a possible colonoscopy down the road after her chemo is all done, etc. I told her to hold the Eliquis for another week or so. I told her to check in with her PCP, [employer], and Oncologist about all of this. D/W her in detail and she was comfortable with this plan. Thanks Time Spent With Patient Time: Total time managing care of this patient today ____ minutes. Quality Stroke Does the patient have a stroke diagnosis?: No VTE Prior VTE?: No VTE Risk Level:: Medical - moderate - high VTE Device Contraindication: N/A - Device Ordered VTE Drug Contraindication: Treatment Not Indicated
[2023-05-22 19:44] VITALS: BP 129/69; PULSE 86; RESP 16; TEMP 37.3; O2SAT 98
[2023-05-22 21:12] LABS: Glucose, Whole Blood 209 mg/dL (60-115)
[2023-05-23] VITALS: BP 113/62; PULSE 80; RESP 20; TEMP 36.3; O2SAT 97
--- NOTE | 2023-05-23 03:13 | PC.NURSE ---
Patient requested IVF shut off, c/o beeping keeping her awake, new bag was due, but turned off per patient request. Powered down machine at 0300. Patient tolerating PO and possible dc in am. will encourage fluids to be resumed next time she is awake.
[2023-05-23 03:30] VITALS: BP 145/69; PULSE 83; RESP 20; TEMP 36.6; O2SAT 100
[2023-05-23] MEDS: Omeprazole 20 MG CAPSULE.DR PO (06:40)
[2023-05-23] MEDS: Lactated Ringers 1,000 ML 100 ML IVCONT (06:41)
[2023-05-23 06:43] LABS: MANUAL DIFF FLAG NO
[2023-05-23 06:53] LABS: Basophils Percent Auto 1.1 % (0-2); Eosinophils Percent Auto 1.1 % (0-4); Hematocrit 37.9 % (37.0-47.0); Hemoglobin 12.8 g/dl (12.0-16.0); Imm Gran Abs Auto 0.07 X10*3/uL (0.00-0.03); Imm Gran Pct Auto 1.9 % (0.0-0.4); Lymphocytes Absolute Auto 0.7 X10*3/uL (1.2-4.9); Lymphocytes Percent Auto 18.3 % (20-40); Mean Corpuscular HGB Conc 33.8 g/dl (31.0-35.0); Mean Corpuscular Hemoglobin 30.2 pg (27.0-33.0); Mean Corpuscular Volume 89.4 fL (80.0-98.0); Mean Platelet Volume 11.5 fL (9.4-12.3); Monocytes Absolute Auto 0.4 X10*3/uL (0.1-1.2); Monocytes Percent Auto 11.1 % (2-11); Neutrophils Absolute Auto 2.5 x10*3/uL (2.0-8.3); Neutrophils Percent Auto 66.5 % (45-73); Platelet Count 177 X10*3/uL (160-400); Red Blood Count 4.24 X10*6/uL (4.20-5.50); White Blood Count 3.8 X10*3/uL (4.8-10.8)
[2023-05-23 07:21] LABS: Anion Gap 10 (12-20); Blood Urea Nitrogen 6 mg/dL (9-16); Calcium 7.5 mg/dL (8.4-10.2); Carbon Dioxide 23 mmol/L (22-29); Chloride 111 mmol/L (96-108); Creatinine Clr Calc Pharmacy 42.7; Estimated Glomerular Filt Rate > 60; Glucose Fasting 112 mg/dL (60-99); Potassium 3.3 mmol/L (3.3-5.1); Sodium 141 mmol/L (135-145)
[2023-05-23 07:33] VITALS: BP 137/76; PULSE 83; RESP 18; TEMP 36.6; O2SAT 97
[2023-05-23 07:43] LABS: Glucose, Whole Blood 126 mg/dL (60-115)
[2023-05-23] MEDS: Atorvastatin Calcium 40 MG TABLET PO (09:38)
[2023-05-23] MEDS: Amoxicillin/Potassium Clav 875 MG TABLET PO (09:38)
[2023-05-23] MEDS: dilTIAZem HCL CD 120 MG CAP.ER.DEG PO (09:38)
[2023-05-23] MEDS: 0.9 % Sodium Chloride Flush 3 ML SYRINGE IVFLUSH (09:38)
[2023-05-23] MEDS: Calcium + Vitamin D 250 MG TABLET 500 MG PO (09:38)
[2023-05-23] MEDS: Metoprolol Succinate ER 25 MG TAB.ER.24H PO (09:38)
[2023-05-23 11:12] VITALS: BP 114/65; PULSE 78; RESP 16; TEMP 36.3; O2SAT 98
[2023-05-23 11:36] LABS: Glucose, Whole Blood 169 mg/dL (60-115)
[2023-05-23 11:43] VITALS: BMI 21.4
--- NOTE | 2023-05-23 11:50 | MHC.CLN ---
RE: CONSULT PT WITH INCREASED RISK FOR MALNUTRITION R/T RECENT CHEMO THERAPY RESULTING IN [place] AND 13# WT LOSS X 2 WEEKS PER PT PREVIOUS WT HX REVEALS 12% NONSIGNIFICANT WT LOSS X 1 YEAR CURRENT DIET: 2000DM, BLAND LACTOSE CONTROLLED -PT MAY BENEFIT FROM LIBERALIZED DIET TO INCREASE VARIETY AND PROMOTE PO INTAKE PT STATED WAS RECEIVING LIQUID DIET AND TODAY WAS FIRST DAY SHE FELT LIKE EATING; CONSUMED EGGS, FRUIT AND OATMEAL PT WITHOUT S/S MALNUTRITION AT THIS TIME BUT DISCUSSED INCREASED RISK R/T CHEMO TX PT DOES NOT WANT SUPPLEMENTS AT THIS TIME, BUT AGREED TO RECONSIDER IF PO INTAKE DECLINES CONSIDER ADVANCING DIET TOLERATED MONITOR PO INTAKE CLOSELY SEE ALSO FULL CLINICAL NUTRITION ASSESSMENT
[2023-05-23] MEDS: Insulin Lispro 100 UNIT/ML 3 ML VIAL SUBCUT ×2 (12:09→17:09)
--- NOTE | 2023-05-23 12:59 | PM.DS ---
DS: Providers Provider Date of Service: 05/23/23 Date of admission: 05/20/23 13:21 Date of discharge: 05/23/23 Primary care physician: MABEL Faye Consults: 05/20/23 12:59 Consult to Gastroenterology Routine Consulting Provider: Arun Malhotra Reason for consultation: GI bleeding. diverticultiis/colitis Attending physician on discharge: Rod William Discharging clinician: Rod William DS: Diagnosis Discharge Diagnosis (1) Lower GI bleed: Status: Acute DS: Summary Hospital Course Hospital Course: 77yo F with paroxysmal AF on apixaban, stage IV breast CA currently on chemotherapy [last cycle 05/15], HTN, HLD, and DM2 who presents with a large amount of BRBPR that started last night and recurred this AM. Paramedics estimated blood loss at 750 mL. In the ED, the patient had a large amount of bloody stool approximated at 500 mL. She endorses only mild RLQ discomfort. Recent diarrhea attributed to chemotherapy. Recently admitted here 05/17-05/18 after fall due to weakness/dehydration from chemotherapy. In the ED, BP was 115/38 [currently 138/76]. Hb was 11.5. Lactate 1.5. She was given 2000 units of Kcentra and [address] A/P without and without contrast suggested mild acute diverticulitis versus colitis, with no active lower GI bleed identified. Multiple hypodense hepatic lesions consistent with known history of liver metastases. She currently denies lightheadedness, dizziness, chest pain, or dyspnea. Hospital course: 77yo F with paroxysmal AF on apixaban, stage IV breast CA currently on chemotherapy [last cycle 05/15], HTN, HLD, and DM2 presenting with an acute, large LGIB,ct abd showed -possible divertoculitis vs colitis-added iv zosyn, Received 2 units of packed red cells ,eliquis placed on hold, Hemoglobin has remained stable, seen by GI- h/h is stable , hold eliquis for 1 week, moniter cbc outpatient . ct abd:Several hepatic hypodense lesions, possibly hemangiomas. consider Liver protocol MRI imaging outpatient with pcp and oncology outpatient. possible divertoculitis vs colitis-symptoms improved.complete augmentin 875 mg po bid for 7 days. plan: Hold Eliquis for 1 week until 4/21/24. Repeat CBC and start Eliquis out patiently as per PCP and Oncology. complete augmentin 875 mg po bid for [address] abd:Several hepatic hypodense lesions, possibly hemangiomas. consider Liver protocol MRI imaging outpatient with pcp and oncology outpatient -patient says that she follows up with liver lesions with her oncologist outpatient. Above management discussed with the patient in detail length she understand and in agreement with above plan, time spent 40 minute. Time Attestation Total time managing care of this patient today: 40 mintues. Discharge Coordination Time (in mins): 40 min Quality: Safe Use of Opioids Does Pt have an Active Cancer Diagnosis on the Problem List?: No Quality: Stroke Does the patient have a stroke diagnosis?: No Physical Exam Vital Signs: Vital Signs: Last Vital Signs Temp 97.4 F 05/23/23 11:12 Pulse 78 05/23/23 11:12 Resp 16 05/23/23 11:12 BP 114/65 05/23/23 11:12 Pulse Ox 98 05/23/23 11:12 O2 Del Method Room Air 05/23/23 11:12 BMI result Body Mass Index 21.4 Appearance: Alert.? Oriented X3.? . cvs: rrr, [id number] , no murmur res: clear to auscultation ,no rhonchii or wheezing abd: no rebound or guarding ,nt, bs present. ext pulses present , no cyanosis . neuro: axo3 , nonfocal. DS: Data Data Completed and Pending Labs on day of discharge: Laboratory Results - last 24 hr 05/22/23 05/22/23 05/23/23 16:02 20:36 06:38 WBC 3.8 L RBC 4.24 Hgb 12.8 Hct 37.9 MCV 89.4 MCH 30.2 MCHC 33.8 RDW 15.0 Plt Count 177 MPV 11.5 Immature Gran % (Auto) 1.9 H Neut % (Auto) 66.5 Lymph % (Auto) 18.3 L [place] % (Auto) 11.1 H Eos % (Auto) 1.1 Baso % (Auto) 1.1 Lymph # (Auto) 0.7 L [place] # (Auto) 0.4 Eos # (Auto) 0.0 Baso # (Auto) 0.0 Abs Immat Gran (auto) 0.07 H Absolute Neuts (auto) 2.5 Absolute Nucleated RBC 0.000 Nucleated RBC % (auto) 0.0 Sodium 141 Potassium 3.3 Chloride 111 H Carbon Dioxide 23 Anion Gap 10 L BUN 6 L Creatinine 0.74 Estim Creat Clear Calc 42.7 Estimated GFR > 60 POC Glucose 245 H 209 H Fasting Glucose 112 H Calcium 7.5 L 05/23/23 05/23/23 07:29 11:23 WBC RBC Hgb Hct MCV MCH MCHC RDW Plt Count MPV Immature Gran % (Auto) Neut % (Auto) Lymph % (Auto) [place] % (Auto) Eos % (Auto) Baso % (Auto) Lymph # (Auto) [place] # (Auto) Eos # (Auto) Baso # (Auto) Abs Immat Gran (auto) Absolute Neuts (auto) Absolute Nucleated RBC Nucleated RBC % (auto) Sodium Potassium Chloride Carbon Dioxide Anion Gap BUN Creatinine Estim Creat Clear Calc Estimated GFR POC Glucose 126 H 169 H Fasting Glucose Calcium Preliminary micro results at discharge 05/20/23 12:58 Blood Culture - Preliminary Blood - Venous No growth after 48 hours. 05/20/23 12:59 Blood Culture - Preliminary Blood - Venous No growth after 48 hours. Imaging Chest x-ray: Radiologist's impression: ITS Impressions Abdomen/Pelvis CT 05/20/23 10:21 IMPRESSION: 1. Abnormal appearance of the descending colon with diverticular changes, some mucosal thickening and pericolonic inflammatory stranding. Findings likely represent a mild active diverticulitis, however, colitis is also within the differential. There is no active lower GI bleed identified. Recommend colonoscopy status post treatment to ensure there is no underlying colonic mass. 2. Several hepatic hypodense lesions, possibly hemangiomas. Liver protocol MRI imaging can be obtained for further characterization as clinically indicated. 3. Cholelithiasis. Discharge Plan Discharge Anticipated Discharge Date/Time: 05/23/23 12:40 Patient Disposition: Home, Self-Care Discharge Diagnosis: Gi bleed , colitis Referrals: Destini Briceño PA [Primary Care Provider] - 1 Week Discharge Medications: New amoxicillin-pot clavulanate 875-125 mg Tablet 14 tab PO BID Qty: 14 0RF Continued atorvastatin 40 mg tablet 40 mg PO DAILY lisinopril 10 mg tablet 10 mg PO DAILY omeprazole 20 mg capsule,delayed release(DR/EC) 20 mg PO DAILY diltiazem HCl 120 mg capsule,extended release 24hr 120 mg PO DAILY metoprolol succinate 25 mg tablet extended release 24 hr 25 mg PO DAILY metformin 500 mg tablet extended release 24 hr 1,500 mg PO BEDTIME Jardiance 10 mg tablet 10 mg PO DAILY Trulicity 3 mg/0.5 mL pen injector 3 mg subcut [facility]ACK[facility] Rx Instructions: sundays calcium carbonate-vitamin D3 [Calcium 500 + D] 500 mg-10 mcg (400 unit) Tablet 1 tab PO DAILY (DME) Ultra-Light Rollator Misc See Rx Instructions .Route Qty: 1 0RF Rx Instructions: As directed Held Eliquis 5 mg tablet 5 mg PO BID Hold Instructions: Resume on 05/29/23. Discharge Orders: Discharge Order (Routine); Ordered 05/23/23 Ordered By: Rod William Diet: Advance to usual diet Activity on Discharge: As tolerated Stand Alone Forms: Patient Portal Discharge page Print Language: Lithuanian Other Ambulatory Orders: Complete Blood Count no Diff (Routine) Timeframe: 1 Week Facility: [facility] - Location: Laboratory Ordered By: Rod William Care Plan Goals: 77yo F with paroxysmal AF on apixaban, stage IV breast CA currently on chemotherapy [last cycle 05/15], HTN, HLD, and DM2 presenting with an acute, large LGIB,ct abd showed -possible divertoculitis vs colitis-added iv zosyn, Received 2 units of packed red cells ,eliquis placed on hold, Hemoglobin has remained stable, seen by GI- h/h is stable in 12.8/37.9 , hold eliquis for 1 week, moniter cbc outpatient . ct abd:Several hepatic hypodense lesions, possibly hemangiomas. consider Liver protocol MRI imaging outpatient with pcp and oncology outpatient. patient was advised to check in with her PCP, [employer], and Oncologist about all of this. possible divertoculitis vs colitis-symptoms improved.complete augmentin 875 mg po bid for 7 days Health Concerns: as above. Plan of Treatment: as above. Assessment: as above.
--- NOTE | 2023-05-23 13:01 | MHC.CM.PN ---
DP: PT HAS BEEN MEDICALLY CLEARED FOR DC HOME, NO SERVICES. FAMILY WILL TRANSPORT
[2023-05-23 15:57] LABS: Glucose, Whole Blood 227 mg/dL (60-115)
[2023-05-23 16:00] VITALS: BP 132/64; PULSE 77; RESP 18; TEMP 36.6; O2SAT 96
[2023-05-23] MEDS: Heparin Sodium,Porcine Flush 500 UNIT/5 ML SYRINGE IVFLUSH (18:20)
== END 2023-05-23 18:38 | disposition home or self-care (01) | DRG 244 ==
LOC: HO.ED 12:40 → HO.EDOVER 13:23 → HO.IMC 17:24
PROVIDERS: Hospitalist; Internal Medicine; Admitting Provider Family Medicine; Emergency Provider Emergency Medicine Emergency Medical Services; PCP Physician Assistant Medical; Visit Provider Internal Medicine
DX: K57.33 Diverticulitis of large intestine without perforation or abscess with bleeding (principal); D84.821 Immunodeficiency due to drugs; C78.7 Secondary malignant neoplasm of liver and intrahepatic bile duct; C79.11 Secondary malignant neoplasm of bladder; C50.919 Malignant neoplasm of unspecified site of unspecified female breast; I48.0 Paroxysmal atrial fibrillation; I10 Essential (primary) hypertension; I25.10 Atherosclerotic heart disease of native coronary artery without angina pectoris; Z87.891 Personal history of nicotine dependence; Z79.01 Long term (current) use of anticoagulants; Z79.84 Long term (current) use of oral hypoglycemic drugs; Z79.85 Long-term (current) use of injectable non-insulin antidiabetic drugs; Z79.60 Long term (current) use of unspecified immunomodulators and immunosuppressants; Z79.899 Other long term (current) drug therapy
CPT/HCPCS: 36415; 74178; 80048; 80053; 82947; 83605; 85014; 85018; 85025; 85027; 85610; 85730; 86140; 86850; 86900; 86901; 86920; 87040; 87493; 87507; 93005; 99285; J1642; J2543; J3430; J7120; J7168; P9016; Q9967

== ENCOUNTER → 2023-05-20 07:11 | Outpatient (BNV) | payer MEDICARE, BC, SELFPAY | PROVIDERS: Admitting Provider Family Medicine; Emergency Provider Emergency Medicine Emergency Medical Services; PCP Physician Assistant Medical; Visit Provider Internal Medicine Cardiovascular Disease | DX: R94.31 Abnormal electrocardiogram [ECG] [EKG] (principal) | CPT/HCPCS: 93010 ==

== ENCOUNTER → 2023-05-20 13:21 | Outpatient (BNV) | payer MEDICARE, BC, SELFPAY | PROVIDERS: Admitting Provider Family Medicine; Emergency Provider Emergency Medicine Emergency Medical Services; PCP Physician Assistant Medical; Visit Provider Family Medicine | DX: K92.2 Gastrointestinal hemorrhage, unspecified (principal) | CPT/HCPCS: 99223; 99232; 99239 ==